=== PATIENT | female | born 1940 | race Caucasian/White ===

== ENCOUNTER → 2020-11-03 09:32 | Outpatient (CLI) | payer MEDICARE, OTHER, SELFPAY ==
[2020-10-24 11:36] VITALS: BMI 26.4
--- NOTE | 2020-11-03 10:00 | RAD_ITS ---
STUDY: AIR-CONTRAST UPPER GI SERIES. REASON FOR EXAM: Female, 80 years old. LOSS OF APPETITE, 10-15 LBS LOSS, HIATAL HERNIA -- 21 FLUORO IMAGES, 14.01mGy, 40 FLUORO SEC FLUOROSCOPY TIME (if supplied): ( 40 seconds ) minutes/seconds. 21 fluoroscopic images. TECHNIQUE: The patient ingested barium. Multiple images of the esophagus, stomach and duodenum were obtained. COMPARISON: None. FINDINGS: There is a moderate-sized hiatal hernia without gastroesophageal reflux. The remainder of the stomach and duodenum is unremarkable. RAD/Upper GI Dual Contrast IMPRESSION: Moderate sized hiatal hernia without evidence of gastroesophageal reflux. Electronically Signed: Matthew Hall, at 15:42 EST , Service support ,
== END ==
PROVIDERS: PCP Physician Assistant; Referring Provider Nurse Practitioner Adult Health; Visit Provider Nurse Practitioner Adult Health
DX: R68.81 Early satiety (principal); R63.4 Abnormal weight loss; K44.9 Diaphragmatic hernia without obstruction or gangrene
CPT/HCPCS: 74246

== ENCOUNTER → 2021-04-19 14:27 | Outpatient (CLI) | payer MEDICARE, OTHER, SELFPAY ==
[2020-12-09 10:10] VITALS: BMI 22.7
--- NOTE | 2021-04-19 14:32 | VDLE_ITS ---
Reason For Study: Edema RIGHT LEFT GSV is normal. GSV is normal. CFV is compressible, spontaneous, phasic, CFV is compressible, spontaneous, phasic, competent and demonstrates normal competent, and demonstrates normal augmentation. augmentation. FV is compressible, spontaneous, phasic, FV is compressible, spontaneous, phasic, competent and demonstrates normal competent and demonstrates normal augmentation. augmentation. POP V is compressible, spontaneous, phasic, POP V is compressible, spontaneous, phasic, competent and demonstrates normal competent and demonstrates normal augmentation. augmentation. T/P Trunk is compressible. T/P Trunk is compressible. PTV is compressible. PTV is compressible. RT PerV is compressible. LT PerV is compressible. Procedure This is a venous duplex using B-mode, color flow and spectral Doppler. Exam performed in department. A preliminary report was called and/or faxed to Jan. VL/Venous Duplex US - Alejandro Extrem Interpretation Summary Deep veins of the lower extremities are bilaterally patent and compressible seg mentally. There is no evidence of deep vein thrombosis on either side. Valvular competence appears in tact within the proximal deep venous systems bilaterally. The great saphenous veins appear bila terally patent and compressible segmentally. Ordering Physician: Felipe Montoya Referring Physician: Javier Park Performed By: Leanne Mayfield RVT and Student
== END ==
PROVIDERS: PCP Physician Assistant; Referring Provider Radiology Radiation Oncology; Visit Provider Radiology Radiation Oncology
DX: R60.0 Localized edema (principal)
CPT/HCPCS: 93970

== ENCOUNTER → 2021-05-16 08:52 | Outpatient (CLI) | payer MEDICARE, OTHER, SELFPAY ==
[2020-12-09 10:10] VITALS: BMI 22.7
[2021-05-16] MEDS: 0.9% NaCl VAD Flush IV (09:14)
[2021-05-16 09:17] VITALS: BP 111/56; PULSE 87; RESP 16; TEMP 36.6; BMI 22.0
[2021-05-16 10:07] VITALS: BP 112/56; PULSE 78; RESP 16; TEMP 36.3; O2SAT 100
[2021-05-16 11:03] VITALS: BP 147/62; PULSE 69; RESP 16; TEMP 36.4
[2021-05-16 12:00] VITALS: BP 143/69; PULSE 70; RESP 16; TEMP 36.3
== END ==
PROVIDERS: PCP Physician Assistant; Referring Provider Internal Medicine Hematology & Oncology; Visit Provider Internal Medicine Hematology & Oncology
DX: D50.0 Iron deficiency anemia secondary to blood loss (chronic) (principal)
CPT/HCPCS: 36430; 86850; 86900; 86901; 86920; 86922; J7040; J7050; P9016; A4216

== ENCOUNTER → 2021-05-22 08:48 | Outpatient (CLI) | payer MEDICARE, OTHER, SELFPAY ==
[2020-12-09 10:10] VITALS: BMI 22.7
[2021-05-16 09:17] VITALS: BMI 22.0
[2021-05-22 09:03] VITALS: BP 128/76; PULSE 89; RESP 16; TEMP 36.8; BMI 21.3
== END | disposition home or self-care (01) ==
PROVIDERS: PCP Family Medicine; Referring Provider Internal Medicine Hematology & Oncology; Visit Provider Internal Medicine Hematology & Oncology
DX: C15.9 Malignant neoplasm of esophagus, unspecified (principal)

== ENCOUNTER 2021-07-13 11:00 | Outpatient (RCR) | payer MEDICARE, OTHER, SELFPAY ==
[2021-07-06 10:22] VITALS: BP 125/65; PULSE 64; TEMP 36.5
--- NOTE | 2021-07-06 14:14 | PCM.WC.HP ---
History of Present Illness Date of Service: 07/06/21 Chief Complaint: Right Buttock Ulcer History of Wound: Ms. Pinzon is a 80-year-old who presents to the wound center due to nonhealing right buttock ulcer. Said to have been noted on the 09 of July. Denies any known precipitating factor. History of esophageal cancer currently in treatment. Her daughter has been helping her care for the ulcer but it has become increasingly difficult. She is unsure of what has been used for the dressing. No significant drainage. Poor appetite, utilizes a feeding tube. No chills, fever or change in bowel habit. [facility] Medical History (Updated 07/06/21 @ 14:[address] Angel Ryan MD) Decubitus ulcer of right buttock, stage 3 Esophageal cancer Essential (primary) hypertension HLD (hyperlipidemia) Hypokalemia Hyponatremia Non-ST elevation myocardial infarction (NSTEMI), type 2 (06/11/16) Physical debility Takotsubo cardiomyopathy transient hypoxia Home Medications lisinopril 40 mg PO DAILY 12/29/15 [History Last Taken Unknown] carvedilol 25 mg tablet 25 mg PO BID 09/10/19 [History Last Taken Unknown] Vitamin b12 1 tab PO .PO 12/09/20 [History Last Taken Unknown] atenolol 25 mg tablet 12.5 mg PO DAILY tab 12/09/20 [History Last Taken Unknown] calcium carbonate 600 mg (1,500 mg)-vitamin D3 500 unit capsule 1 cap PO DAILY cap 12/09/20 [History Last Taken Unknown] cholecalciferol (vitamin D3) 10 mcg (400 unit) capsule 20 mcg PO DAILY cap 12/09/20 [History Last Taken Unknown] famotidine 20 mg tablet 20 mg PO BID tab 12/09/20 [History Last Taken Unknown] fluticasone propionate 50 mcg/actuation nasal spray,suspension 2 spray INTRANASAL DAILY ml 12/09/20 [History Last Taken Unknown] metoclopramide HCl 5 mg tablet 5 mg PO DAILY tab 12/09/20 [History Last Taken Unknown] mirtazapine 15 mg tablet 7.5 mg PO QHS tab 12/09/20 [History Last Taken Unknown] omeprazole 20 mg capsule,delayed release 20 mg PO DAILY cap 12/09/20 [History Last Taken Unknown] atorvastatin 20 mg tablet 20 mg PO DAILY #90 tab 02/27/21 [Rx Last Taken Unknown] Allergy/AdvReac Type Severity Reaction Status Date / Time acetaminophen [From [facility]] Allergy Unknown Verified 05/22/21 09:03 hydrocodone [From [facility]] Allergy Unknown Verified 05/22/21 09:03 Penicillins Allergy Rash Verified 05/22/21 09:03 Sulfa (Sulfonamide AdvReac Upset Verified 05/22/21 09:03 Antibiotics) Stomach Family History Brother CAD (coronary artery disease) Father CVA (cerebral vascular accident) Mother CVA (cerebral vascular accident) Surgical History H/O: hysterectomy History of left heart catheterization (06/11/16) Hx of appendectomy Social History (Updated 12/09/20 @ 12:22 by Juan Abbott DIRECTOR CORPORATE COMMUNICATIONS, DIRECTOR CORPORATE COMMUNICATIONS-C) Smoking Status: Never smoker alcohol intake: never substance use type: does not use ROS Constitutional Constitutional: Reports fatigue, lethargy and poor appetite; Denies fever(s) or weight gain Eyes Eyes: Denies blindness, change in eye color, decreased night vision, diplopia or discharge from eye(s) ENT HEENT: Denies ear discharge, ear pain, epistaxis, facial pain or foreign body in nose Cardiovascular Cardiovascular: Denies bluish discoloration of hand/feet, chest pain, chest pain with activity, claudication, clubbing or cold extremities Respiratory/Chest Respiratory/Chest: Denies difficulty clearing secretions, dusky skin, excessive phlegm production, hemoptysis, hoarseness or pain with cough Gastrointestinal Gastrointestinal: Denies coffee ground emesis, diarrhea, dry heaves, dyspepsia or dysphagia Genitourinary Genitourinary: Denies abdominal discomfort, burning urination, genital lesions or genital pain Musculoskeletal Musculoskeletal: Denies joint swelling, loss of height, muscle cramps or numbness Integumentary Integumentary: Reports skin ulcer; Denies bleeding lesions, change in pigmentation, erythema or skin swelling Neurologic Neurologic: Denies burning sensations, confusion, dizziness, focal weakness, frequent falls or headache(s) Psychiatric Psychiatric: Denies hallucinations, homicidal ideation, irritability or memory loss Endocrine Endocrinology: Denies deepening of the voice, heat intolerance, increase in ring/shoe/hat size, palpitations, polydipsia or polyphagia Vital Signs Vital Signs Vital Signs: 07/06/21 10:22 Temperature 97.7 F L Temperature Source Temporal Pulse Rate 64 Blood Pressure 125/65 H Blood Pressure Mean 85 Blood Pressure Source Monitor Blood Pressure Position Semi-Fowlers Blood Pressure Location Right Arm Physical Exam Const alert, oriented x3 and no apparent distress General Appearance: cooperative and comfortable HEENT normocephalic and head/scalp atraumatic Neck full ROM Resp normal respiratory effort Effort and Inspection: able to speak in complete sentences Cardio regular rate, regular rhythm, S1 normal heart sound and S2 normal heart sound GI Palpation: soft; Negative for tender Skin Wounds: wounds noted Neuro oriented x3, CN's II-XII intact bilaterally, moves all extremities and no focal motor deficits Psych mental status grossly normal Appearance: grossly normal Attitude: calm Debridement Note Debridement Note Wound debrided: Right buttock Type of Debridement: Excisional debridement Anesthesia Used: 4% Lidocaine Solution Depth: Down to and including healthy tissue Percentage of wound debrided: 100 Instrument Used: 5mm curette Tissue Removed: Slough and devitalized tissue Severity: Fat Layer Exposed Amount of bleeding with debridement: Mild Bleeding Controlled with: Pressure Patient tolerated procedure: Patient tolerated procedure well Post-Debridement Measurements and Additional Note: Post-Debridement Measurements/Treatment - Nurse 1 - General Ulcer Assessment Start: 07/06/21 10:21 Freq: Status: Active Protocol: [email or web address] Activity Type Activity Date Activity User E-Sign Co-Sign Detail Recorded Client Recorded Date Recorded By Document 07/06/21 10:22 [id number] 07/06/21 10:26 ML 07/06/21 10:22 - Today's Visit Information Type of service Initial Visit Arrival Mode Ambulatory Patient Identification Verified (Name & Yes ) Vital Signs Temperature (97.8 F-99.1 F) 97.7 F L Temperature Source Temporal Pulse Rate (60-100) 64 Pulse Location Monitor Blood Pressure (90/60-120/80) 125/65 H Blood Pressure Mean 85 Source Monitor Position Semi-Fowlers Blood Pressure Location Right Arm History Since Last Visit- (Skip if this is Patient's initial visit) Have you changed medications since your No last visit? Any new allergies or adverse reactions No Had a fall/change in ADL's that may No increase risk of falls Signs or symptoms of abuse and/or No neglect since last visit Have you been in the hospital since your No last visit? Has dressing in place as prescribed No Has compression in place as prescribed N/A Has offloadiing in place as prescribed N/A Experienced any changes in pain level or No management Left Footwear Regular Shoe Right Footwear Regular Shoe Pain Scale: 0-10 Numeric Is Patient Pain Free? Yes - Nurse 1 - General Ulcer Measurement Start: 07/06/21 10:21 Freq: Status: Active Protocol: Activity Type Activity Date Activity User E-Sign Co-Sign Detail Recorded Client Recorded Date Recorded By Document 07/06/21 10:22 [id number] 07/06/21 10:26 07/06/21 10:22 Wound Center Nurse 1 #1 Right Buttock -Current Size (cm) - Length 1 -Current Size (cm) - Width 1 -Current Size (cm) - Depth 0.1 -Total Square Cm 1 -Exudate Amt None Present -Wound Margin Distinct, Outline Attached -Granulation Amt Small (1-33%) -Granulation Quality Pale -Necrosis Amt None Present (0 %) -Texture (Nallely-wound Skin Appearance) Assessed, Scarring -Moisture (Nallely-wound Skin Appearance) No Abnormality, Assessed -Color (Nallely-wound Skin Appearance) No Abnormality, Assessed -Temperature (Nallely-wound Skin No Abnormality Appearance) (Pt Warm) -Tenderness on Palpation (Nallely-wound No Skin Appearance) -Ulcer Cleansing Rinsed/ Irrigated with Saline -Foul Odor after Cleansing No -Anesthetic Used 5% Lidocaine Gel - Nurse 2 - General Ulcer CM Notes Start: 07/06/21 10:21 Freq: Status: Active Protocol: Activity Type Activity Date Activity User E-Sign Co-Sign Detail Recorded Client Recorded Date Recorded By Document 07/06/21 10:52 MS [id number] 07/06/21 10:56 MS 07/06/21 10:52 Wound Center Nurse 2 -Time 10:52 -Correct Patient Yes -Correct Side, Site, Position Yes -Correct Procedure Yes -Procedure Performed Yes -Type of Procedure Debridement -Clinical Debridement Subcutaneous -Tissue Removed Subcutaneous -Post Debridement (cm) - Length 0.6 -Post Debridement (cm) - Width 1.3 -Post Debridement (cm) - Depth 0.1 -Total Square (Post) (cm) 0.78 -Area of Debridement (cm) - Length 0.6 -Area of Debridement (cm) - Width 1.3 -Total Square (Area) (cm) 0.78 -Tunneling No -Undermining/Tunneling No -Circular Undermining No -Wound/Ulcer Outcome Not Healed -Ulcer Cleansing Rinsed/ Irrigated with Saline -Foul Odor after Cleansing No -Bioengineered Tissue No -Bleeding Controlled with Pressure -Offloading No -Treatment Response Procedure Tolerated Well -Debridement - Subq, 1st 20sq cm Yes WC - Nurse 3 - General Ulcer D/C NN Start: 07/06/21 10:21 Freq: Status: Active Protocol: Activity Type Activity Date Activity User E-Sign Co-Sign Detail Recorded Client Recorded Date Recorded By Document 07/06/21 11:08 ML [id number] 07/06/21 11:09 ML 07/06/21 11:08 Wound Care Nurse 3 -Ulcer Cleansing Rinsed/ Irrigated with Saline -Foul Odor after Cleansing No -Other Dressing xeroform,foam dressing WC - Visit Discharge Discharge Condition Stable Ambulatory Status Ambulatory Medication Reconcilliation completed & No provided to patient/care provider Clinical Summary of Care Provided Yes Charges/Coding Visit Charges Office Visits / Consults: [id number] OV L3 New Procedures Integumentary 111xxx-113xx: [id number] Eli subq tissue 20 sq cm/< Assessment/Plan Assessment/Plan (1) Decubitus ulcer of right buttock, stage 3: CODE(S): L89.313 - Pressure ulcer of right buttock, stage 3 (2) Esophageal cancer: CODE(S): C15.9 - Malignant neoplasm of esophagus, unspecified (3) Physical debility: CODE(S): R53.81 - Other malaise PLAN: Debridement done as documented above, procedure was well-tolerated. Xeroform daily with foam dressing over top. Offloading discussed/recommended. Adequate protein intake, currently has a G-tube. Vitamin C, D and zinc to aid wound healing. Her questions were answered and she was advised to call with any further questions or concerns. Patient is unable to care for herself due to her debility and chronic medical conditions. Daughter is also not readily available to help care for her. She will immensely benefit from home health, order sent. Follow-up in 1 week. This note was generated with Dragon dictation software. It may contain incorrect words, spelling, and punctuation that were not noted in checking the note before signing.
[2021-07-13 11:00] VITALS: BP 138/60; PULSE 85; TEMP 29.4
--- NOTE | 2021-07-13 13:51 | PN.PCM_ITS ---
History of Present Illness Date of Service: 07/13/21 Chief Complaint: Right Buttock Ulcer History of Wound: Ms. Pinzon is a 80-year-old who presents to the wound center due to nonhealing right buttock ulcer. Said to have been noted on the 09 of July. Denies any known precipitating factor. History of esophageal cancer currently in treatment. Her daughter has been helping her care for the ulcer but it has become increasingly difficult. She is unsure of what has been used for the dressing. No significant drainage. Poor appetite, utilizes a feeding tube. No chills, fever or change in bowel habit. Subjective Subjective Healed. No new concerns at this time. Objective Data Objective Data Vital Signs: Vital Signs Temp Pulse BP 85 F L 85 138/60 H 07/13/21 11:00 07/13/21 11:00 07/13/21 11:00 Charges/Coding Visit Charges Office Visits / Consults: 22653 OV L3 Est Physical Exam Const alert, oriented x3 and no apparent distress General Appearance: cooperative and comfortable HEENT normocephalic and head/scalp atraumatic Neck full ROM Resp normal respiratory effort Effort and Inspection: able to speak in complete sentences GI Palpation: soft; Negative for tender Neuro oriented x3, CN's II-XII intact bilaterally, moves all extremities and no focal motor deficits Psych mental status grossly normal Appearance: grossly normal Attitude: calm Debridement Note Debridement Note Post-Debridement Measurements and Additional Note: Post-Debridement Measurements/Treatment - Nurse 1 - General Ulcer Assessment Start: 07/06/21 10:21 Freq: Status: Active Protocol: [email or web address] Activity Type Activity Date Activity User E-Sign Co-Sign Detail Recorded Client Recorded Date Recorded By Document 07/06/21 10:22 ML [id number] 07/06/21 10:26 ML Document 07/13/21 11:00 AK [id number] 07/13/21 11:02 AK 07/06/21 07/13/21 10:22 11:00 - Today's Visit Information Type of service Initial Visit Follow-up Visit (Physician/SENIOR MASTER SCHEDULER ) Arrival Mode Ambulatory Ambulatory Patient Identification Verified (Name & Yes Yes ) Patient Requires Transmission-Based No Precautions Safety Precautions NA Vital Signs Temperature (97.8 F-99.1 F) 97.7 F L 85 F L Temperature Source Temporal Temporal Pulse Rate (60-100) 64 85 Pulse Location Monitor Monitor Blood Pressure (90/60-120/80) 125/65 H 138/60 H Blood Pressure Mean (mm Hg) 85 86 Source Monitor Monitor Position Semi-Fowlers Blood Pressure Location Right Arm History Since Last Visit- (Skip if this is Patient's initial visit) Have you changed medications since your No No last visit? Any new allergies or adverse reactions No No Had a fall/change in ADL's that may No No increase risk of falls Signs or symptoms of abuse and/or No No neglect since last visit Have you been in the hospital since your No No last visit? Has dressing in place as prescribed No Yes Has compression in place as prescribed N/A N/A Has offloadiing in place as prescribed N/A Yes Experienced any changes in pain level or No No management Left Footwear Regular Shoe Regular Shoe Right Footwear Regular Shoe Regular Shoe Pain Scale: 0-10 Numeric Is Patient Pain Free? Yes WC - Nurse 1 - General Ulcer Measurement Start: 07/06/21 10:21 Freq: Status: Active Protocol: Activity Type Activity Date Activity User E-Sign Co-Sign Detail Recorded Client Recorded Date Recorded By Document 07/06/21 10:22 ML [id number] 07/06/21 10:26 ML Document 07/13/21 11:00 AK [id number] 07/13/21 11:02 AK 07/06/21 07/13/21 10:22 11:00 Wound Center Nurse 1 #1 Right Buttock -Current Size (cm) - Length 1 0.1 -Current Size (cm) - Width 1 0.1 -Current Size (cm) - Depth 0.1 0.1 -Total Square Cm 1 0.01 -Photo Taken No -Tunneling No -Undermining/Tunneling No -Circular Undermining No -Change in Wound Grade/Stage No -Exudate Amt None Present None Present -Wound Margin Distinct, Distinct, Outline Outline Attached Attached -Granulation Amt Small (1-33%) None Present (0 %) -Granulation Quality Pale N/A -Slough/Fibrin No -Necrosis Amt None Present (0 %) -Structure Exposed N/A -Texture (Nallely-wound Skin Appearance) Assessed, No Abnormality, Scarring Assessed -Moisture (Nallely-wound Skin Appearance) No Abnormality, No Abnormality, Assessed Assessed -Color (Nallely-wound Skin Appearance) No Abnormality, No Abnormality, Assessed Assessed -Temperature (Nallely-wound Skin No Abnormality No Abnormality Appearance) (Pt Warm) (Pt Warm) -Tenderness on Palpation (Nallely-wound No No Skin Appearance) -Ulcer Cleansing Rinsed/ Rinsed/ Irrigated with Irrigated with Saline Saline -Foul Odor after Cleansing No No -Anesthetic Used 5% Lidocaine 5% Lidocaine Gel Gel WC - Nurse 2 - General Ulcer CM Notes Start: 07/06/21 10:21 Freq: Status: Active Protocol: Activity Type Activity Date Activity User E-Sign Co-Sign Detail Recorded Client Recorded Date Recorded By Document 07/06/21 10:52 MT [id number] 07/06/21 10:56 MT Document 07/13/21 11:07 MW [id number] 07/13/21 11:09 MW 07/06/21 07/13/21 10:52 11:07 Wound Center Nurse 2 -Time 10:52 11:07 -Correct Patient Yes Yes -Correct Side, Site, Position Yes Yes -Correct Procedure Yes Yes -Procedure Performed Yes No -Type of Procedure Debridement -Clinical Debridement Subcutaneous -Tissue Removed Subcutaneous -Post Debridement (cm) - Length 0.6 0 -Post Debridement (cm) - Width 1.3 0 -Post Debridement (cm) - Depth 0.1 0 -Total Square (Post) (cm) 0.78 0 -Area of Debridement (cm) - Length 0.6 -Area of Debridement (cm) - Width 1.3 -Total Square (Area) (cm) 0.78 -Tunneling No No -Undermining/Tunneling No No -Circular Undermining No No -Wound/Ulcer Outcome Not Healed Healed- Epithelialized -Ulcer Cleansing Rinsed/ Irrigated with Saline -Foul Odor after Cleansing No -Bioengineered Tissue No -Bleeding Controlled with Pressure -Offloading No -Treatment Response Procedure Tolerated Well -Debridement - Subq, 1st 20sq cm Yes WC - Nurse 3 - General Ulcer D/C NN Start: 07/06/21 10:21 Freq: Status: Active Protocol: Activity Type Activity Date Activity User E-Sign Co-Sign Detail Recorded Client Recorded Date Recorded By Document 07/06/21 11:08 ML [id number] 07/06/21 11:09 ML Document 07/13/21 11:13 BMF [id number] 07/13/21 11:14 BMF 07/06/21 07/13/21 11:08 11:13 Wound Care Nurse 3 -Ulcer Cleansing Rinsed/ Irrigated with Saline -Foul Odor after Cleansing No -Other Dressing xeroform,foam dressing Treatment Response Procedure Tolerated Well Pain Scale: 0-10 Numeric Is Patient Pain Free? Yes WC - Visit Discharge Discharge Condition Stable Stable Ambulatory Status Ambulatory Ambulatory Transportation Private Auto Accompanied by daughter Medication Reconcilliation completed & No provided to patient/care provider Clinical Summary of Care Provided Yes Assessment/Plan Assessment/Plan (1) Decubitus ulcer of right buttock, stage 3: CODE(S): L89.313 - Pressure ulcer of right buttock, stage 3 (2) Esophageal cancer: CODE(S): C15.9 - Malignant neoplasm of esophagus, unspecified (3) Physical debility: CODE(S): R53.81 - Other malaise PLAN: Healed. No new concerns at this time. Zinc oxide daily to twice daily and cover with barrier dressing. Do this for 1 to 2 weeks. Offloading discussed/recommended. Adequate protein intake, currently has a G-tube. Vitamin C, D and zinc to aid wound healing. Her questions were answered and she was advised to call with any further questions or concerns. Discharge from the wound clinic. This note was generated with [employer] dictation software. It may contain incorrect words, spelling, and punctuation that were not noted in checking the note before signing.
== END 2021-07-27 23:59 ==
LOC: WC 11:00
PROVIDERS: PCP Family Medicine; Visit Provider Internal Medicine
DX: L89.313 Pressure ulcer of right buttock, stage 3 (principal); C15.9 Malignant neoplasm of esophagus, unspecified; I11.9 Hypertensive heart disease without heart failure; E78.5 Hyperlipidemia, unspecified; Z93.1 Gastrostomy status; Z79.899 Other long term (current) drug therapy; I25.2 Old myocardial infarction
CPT/HCPCS: 11042; 99213; G0463

== ENCOUNTER → 2021-07-28 07:57 | Outpatient (CLI) | payer MEDICARE, OTHER, SELFPAY ==
--- NOTE | 2021-07-28 08:04 | RAD_ITS ---
STUDY: X-RAY - ESOPHAGUS (BARIUM SWALLOW) WITH FLUOROSCOPY REASON FOR EXAM: Female, 80 years old. DYSPHAGIA,ESOPH CA TECHNIQUE: 30 view(s) of the esophagus were obtained following swallowing of barium. FLUOROSCOPY TIME (if supplied): (75 seconds) minutes/seconds COMPARISON: None. FINDINGS: There is no demonstrated esophageal foreign body. There is circumferential narrowing of the distal esophagus. Mild irregularity of the wall of the distal esophagus. The patient ingested a 12 mm tablet of barium. The tablet is trapped in the distal esophagus. Surgical clips are seen in the fundal aspect of the stomach. There is atherosclerotic calcification of the aortic arch with tortuosity of the descending aorta. There are scattered small pulmonary calcifications consistent with old granulomatous disease. There are diffuse degenerative changes of the visualized thoracic spine. RAD/Esophagus Dual Contrast IMPRESSION: Circumferential wall narrowing of the distal esophagus with deformity of the fundal portion of the stomach with surgical clips in that region. The ingested 12 mm tablet of barium is trapped in the distal esophagus. Electronically Signed: Matthew Hall MD at 14:42 EDT , Service support ,
== END ==
PROVIDERS: PCP Family Medicine; Visit Provider Internal Medicine Gastroenterology
DX: C15.9 Malignant neoplasm of esophagus, unspecified (principal); R13.10 Dysphagia, unspecified
CPT/HCPCS: 74220; 74221

== ENCOUNTER → 2021-09-04 13:50 | Outpatient (CLI) | payer MEDICARE, OTHER, SELFPAY ==
--- NOTE | 2021-09-04 14:48 | ST.MBS ---
Modified Barium Swallow - Patient Information Study Date: 09/04/21 Study Time: 13:30 Direct Billable Minutes: 120 Total Minutes procedure & reportin Diagnosis: Dysphagia R13.10 Referring Physician: [place] Reason for Referral: Pt. was referred for an objective Videofluoroscopy study of the swallow to rule out aspiration due to pt. having difficulty swallow hard food textures and complaining of food sticking in her throat. Medical History: Pt. reports medical history of esophageal cancer and treatment of radiation and chemotherapy. Pt. reports no resipiratory or neurological medical diagnoses. Current Diet Ordered: soft with thin liquids per pt. report Dentition: Missing Teeth - Penetration-Aspiration Scale Penetration-Aspiration Scale: OBJECTIVE ASSESSMENT OF SWALLOW FUNCTION (QUANTITATIVE ? PER TRIAL): PENETRATION / ASPIRATION SCALE (MARLOW): 1 = does not enter airway 2 = enters airway/above vocal folds/ejected 3 = enters airway/above vocal folds/not ejected 4 = enters airway/contacts vocal folds/ejected 5 = enters airway/contacts vocal folds/not ejected 6 = enters airway/below vocal folds/ejected 7 = enters airway/below vocal folds/not ejected despite effort 8 = enters airway/below vocal folds/no effort - Penetration-Aspiration Scale Score Thin Liquid via teaspoon Result: 1= does not enter airway Thin Liquid via teaspoon Trial 2 Result: 1= does not enter airway Thin Liquid via small single sip from cup Result: 1= does not enter airway Thin Liquid via sequential sips from cup Result: 2= enter airway/above vocal folds/ejected Thin Liquid via sequential sips from straw Result: 2= enter airway/above vocal folds/ejected [employer] Thick Liquid via small single sip from cup Result: 1= does not enter airway Honey Thick Liquid via small single sip from cup Result: 1= does not enter airway Pudding via teaspoon Result: 1= does not enter airway - Pt. presented with gagging with bolus and stated tsp amount was too large Pudding via teaspoon Trial 2 Result: 1= does not enter airway - esophageal scan Cookie via teaspoon Result: 1= does not enter airway Thin Liquid via small single sip from cup Effortful swallow Result: 2= enter airway/above vocal folds/ejected Thin Liquid via small single sip from cup Trial 2 Result: 1= does not enter airway Thin Liquid via small single sip from cup Chin tuck Result: 5= enters airways/contacts vocal folds/not ejected - Oral Phase Labial Seal: No Labial Escape Tongue Control During Bolus Hold: Cohesive bolus between tongue to palatal seal Bolus Preparation/Mastication: Disorganized chewing/mashing with solid pieces of bolus unchewed Bolus Transport/Lingual Motion: Slowed tongue motion Oral Residue: Residue collection on oral structures - Pharyngeal Phase Initiation of Pharyngeal Swallow: Bolus head in valleculae - at end of study, bolus head at posterior tongue at beginning of study Soft Palate Elevation: No bolus between soft palate and pharyngeal wall Laryngeal Elevation: Partial superior movement thyroid cart/partial apprx aryt-epig petiole Anterior Hyoid Excursion: Partial anterior movement Epiglottic Movement: Complete inversion Laryngeal Vestibule Closure at Height of Swallow: Incomplete; narrow column of air/contrast in laryngeal vestibule - with sequential sips, complete with single sips/bites Pharyngeal Stripping Wave: Present - complete Pharyngoesophageal Segment Opening: Parital distension and partial duration; parital obstruction of flow Tongue Base Retraction: Narrow column of contrast between tongue base & post. pharyngeal wall Pharyngeal Residue: Collection of residue within or on pharyngeal structures - Esophageal Phase Esophageal Clearance: Esophageal retention - cleared with delay - Treatment Strategies Effects of treatment strategies attemped:: Pt. independently implemented re-swallow after each po trial with limited success to clear oral residue. Pt. was prompted by DRAWER [employer]TER to trial effortful swallow and chin tuck with thin liquids with initial swallow resulting in increased penetration. - Diagnosis/Impression Diagnosis: Moderate oropharyngeal dysphagia R13.12 Impression: Pt. presents with oral phase dysphagia marked by decreased masticaiton of solid textures and decreased anterior to posterior transfer of the bolus resulting in oral residues and un-masticated pieces of solid textures. Pt. presents with pharyngeal phase dysphagia characterized by decreased tongue base retraction, decreased laryngeal elevation and decreased anterior hyoid excursion resulting in pharyngeal residue along the tongue base and the valleculae and trace residue along the pharyngeal wall and pyriform sinuses. Pt. independently implemented re-swallows with limited success to clear pharyngeal residues, but it did minimize oral residues. Pt. presented with consistent throat clear throughout the study, but no aspiration observed. - Recommendations Diet: Mechanical Soft Textures - minced and moist IDDSI level 5 and thin liquids IDDSI level 0, Thin Liquids Comment: 1 sip and bite at a time Compensatory Strategies: Small Bites, Small Sips, No Straws, Slow Rate, Multiple Swallows, Alternate bites/solids and sips/liquids, Sitting upright, Remain sitting upright for 30 minutes after PO intake Supervision: Distant Supervision Recommend Repeat Modified Barium Swallow: No Need for Skilled Speech Therapy Services: Yes - Continue with Home Health ST Education Completed: 1. Described result of evaluation., 2. Pt understands evaluation & agrees with goals and treatment plan. - Status Active ST Patient: Not Active - Contact Information [facility] Speech Therapy:: [facility] [address] [place], [place] Viki Fisher M.A., CCC-DRAWER FITTER [email or web address] 09/04/21 15:29
== END ==
LOC: RAD 13:50
PROVIDERS: PCP Family Medicine; Visit Provider Physician Assistant
DX: R13.13 Dysphagia, pharyngeal phase (principal)
CPT/HCPCS: 74230; 92611

== ENCOUNTER 2021-11-28 09:25 | Outpatient (CLI) | payer MEDICARE, OTHER, SELFPAY ==
--- NOTE | 2021-11-28 09:35 | RAD_ITS ---
STUDY: X-RAY - ESOPHAGUS (BARIUM SWALLOW) WITH FLUOROSCOPY REASON FOR EXAM: Female, 81 years old. ESOPHAGEAL CANCER/STENT/DYSPHAGIA TECHNIQUE: 31 view(s) of the esophagus were obtained following swallowing of barium. FLUOROSCOPY TIME (if supplied): (1 minute and 30 seconds) minutes/seconds COMPARISON: Comparison is made with prior examination dated 07/28/2021. FINDINGS: An esophageal stent is seen extending from the distal esophagus into the fundal portion of the stomach just distal to the gastroesophageal junction. There is evidence of circumferential narrowing of the midportion of the esophagus just proximal to the origin of the stent. The patient ingested a 12 mm tablet of barium. The tablet this trapped in the mid esophagus. There is evidence of a moderate degree of gastroesophageal reflux. There is atherosclerotic calcification of the aortic arch with tortuosity of the descending aorta. Normal visualized pulmonary parenchyma. There are diffuse degenerative changes of the visualized thoracic spine. RAD/Esophagus Dual Contrast IMPRESSION: Status post esophageal stent extending from the distal esophagus into the fundal portion of the stomach. Circumferential narrowing of the mid esophagus just proximal to the origin of the stent. There is trapping of the 12 mm tablet of barium at that site. Gastroesophageal reflux. Electronically Signed: Matthew Hall MD at 14:56 EST ,
== END 2021-11-28 23:59 | disposition short-term general hospital (02) ==
LOC: RAD 09:29
PROVIDERS: PCP Family Medicine; Referring Provider Internal Medicine Gastroenterology; Visit Provider Internal Medicine Gastroenterology
DX: R13.10 Dysphagia, unspecified (principal); C15.9 Malignant neoplasm of esophagus, unspecified; Z96.89 Presence of other specified functional implants
CPT/HCPCS: 74221

== ENCOUNTER 2021-12-02 18:37 | Emergency (ER) | payer MEDICARE, OTHER, SELFPAY ==
[2021-12-02 18:38] VITALS: BP 130/78; PULSE 75; RESP 18; TEMP 36.4; O2SAT 97; BMI 20.5
--- NOTE | 2021-12-02 18:57 | CT_ITS ---
EXAM: CT CERVICAL SPINE WITHOUT INTRAVENOUS CONTRAST CLINICAL INDICATION: neck pain TECHNIQUE: Helically acquired images were obtained of the cervical spine without intravenous contrast. 2D reformatted images were reviewed. This CT exam was performed using one or more of the following dose reduction techniques: automated exposure control, adjustment of the mA and/or kV according to patient size, and/or use of iterative reconstruction technique. This report was created using [employer] report generation technology. COMPARISON: None. FINDINGS: VERTEBRAE: Anterior spondylosis at multiple cervical levels. Multilevel facet arthropathy throughout cervical spine. Degenerative anterolisthesis of C3-C4 and C4-C5. No fracture. No discrete lytic or blastic abnormality. Normal craniocervical junction and cervicothoracic junction. DISCS/SPINAL CANAL/NEURAL FORAMINA: Disc space narrowing most pronounced at C5-C6. SOFT TISSUES: Unremarkable. No prevertebral soft tissue swelling. VASCULATURE: Atherosclerosis of the bilateral carotid arteries. LYMPH NODES: Unremarkable. No cervical adenopathy. ESOPHAGUS: Fluid-filled thoracic esophagus. LUNG APICES: Unremarkable as visualized. Clear. CT/Spine Cervical without Contras IMPRESSION: 1. No acute findings in the cervical spine. 2. Multilevel degenerative changes. 3. Fluid-filled thoracic esophagus. Electronically Signed: Adam Prado MD ([place]) at 21:03 EST Reading Location ID and State: [facility] / [place] , Service support ,
--- NOTE | 2021-12-02 19:04 | ED.VIS.FALL ---
HPI <LEA Millan - Last Filed: 12/02/21 21:54> HPI - Fall History of Present Illness Chief Complaint: Fall Narrative Narrative: 81-year-old female presents after a fall. She was carrying something upstairs when she lost her balance and fell backwards down 5 steps onto the landing. She hit her head and back on the wall and landed on her butt. No LOC. No aspirin or blood thinners. She scooted herself to the bottom of the steps and her family arrived 15 minutes later and called EMS. She was not able to ambulate. She reports pain in her right lower back but has no other injuries. Denies headache, nausea, vomiting, neck pain, chest pain, dyspnea, abdominal pain. [facility] <LEA Millan - Last Filed: 12/02/21 21:54> [facility] Medical History (Updated 07/06/21 @ 14:[address] Angel Ryan MD) Decubitus ulcer of right buttock, stage 3 Esophageal cancer Essential (primary) hypertension HLD (hyperlipidemia) Hypokalemia Hyponatremia Non-ST elevation myocardial infarction (NSTEMI), type 2 (06/11/16) Physical debility Takotsubo cardiomyopathy transient hypoxia Home Medications carvedilol 25 mg tablet 25 mg PO DAILY 09/10/19 [History Last Taken Unknown] calcium carbonate 600 mg-vitamin D3 12.5 mcg (500 unit) capsule 1 cap PO DAILY cap 12/09/20 [History Last Taken Unknown] cholecalciferol (vitamin D3) 10 mcg (400 unit) capsule 20 mcg PO DAILY cap 12/09/20 [History Last Taken Unknown] famotidine 20 mg tablet 20 mg PO BID tab 12/09/20 [History Last Taken Unknown] metoclopramide HCl 5 mg tablet 5 mg PO DAILY tab 12/09/20 [History Last Taken Unknown] atorvastatin 20 mg tablet 20 mg PO DAILY #90 tab 02/27/21 [Rx Last Taken Unknown] citalopram 20 mg PO DAILY 12/02/21 [History Last Taken Unknown] Allergy/AdvReac Type Severity Reaction Status Date / Time hydrocodone [From [place]] Allergy Unknown Verified 12/02/21 18:42 Penicillins Allergy Rash Verified 12/02/21 18:42 Sulfa (Sulfonamide AdvReac Upset Verified 12/02/21 18:42 Antibiotics) Stomach Family History Brother CAD (coronary artery disease) Father CVA (cerebral vascular accident) Mother CVA (cerebral vascular accident) Surgical History H/O: hysterectomy History of left heart catheterization (06/11/16) Hx of appendectomy Social History (Updated 12/09/20 @ 12:22 by Juan Abbott [facility], [facility]) Smoking Status: Never smoker alcohol intake: never substance use type: does not use ROS <LEA Millan - Last Filed: 12/02/21 21:54> ROS ED ROS Narrative Constitutional: Negative for fever, chills, malaise. Eyes: Negative for visual change. ENT: Negative for sore throat, ear pain, rhinorrhea. CVS: Negative for palpitations, chest pain, syncope. Respiratory: Negative for shortness of breath, cough, orthopnea. GI: Negative for abdominal pain, nausea, vomiting, diarrhea, constipation. : Negative for dysuria, hematuria or frequency. Neuro: Negative for headache, motor/sensory dysfunction. Skin: Negative for rash, abscess, or wound. Heme: Negative for easy bruising, bleeding, lymphadenopathy. EXAM <LEA Millan - Last Filed: 12/02/21 21:54> Physical Exam Narrative Exam Narrative: CONST: Patient sitting in no acute distress. EYES: Normal inspection. Head: Head normocephalic atraumatic, no raccoon eyes or groves sign, no hemotympanum, no nasal septal hematoma, no CSF otorrhea or rhinorrhea. ENT: No dental injury, no malocclusion. NECK: Normal inspection. No midline spinal tenderness, no step off or crepitus. RESP: No respiratory distress, CTAB. Chest nontender. CVS: Regular rate and rhythm, no murmur, no gallop. ABD: Soft and nontender, no guarding or rebound, nondistended. PEG tube intact. Back: Normal inspection, no midline spinal tenderness, no step-off or crepitus. Tender to palpation over right posterior lower ribs. SKIN: Color normal, no rash, warm, dry, intact. EXTREMITIES: Normal appearance, full range of motion of upper and lower extremities, nontender, normal strength and sensation, 2+ radial and DP pulses. NEURO: Oriented x4. PSYCH: Normal affect. Const Vital Signs: 12/02/21 18:38 12/02/21 18:49 Temperature 97.6 F L Temperature Source Temporal Pulse Rate 75 Respiratory Rate 18 Respiratory Effort Normal Blood Pressure 130/78 H Blood Pressure Mean 95 Pulse Ox 97 Oxygen Delivery Method Room Air Room Air <Dr. Adama Tapia DO - Last Filed: 12/02/21 22:06> Physical Exam Const Vital Signs: 12/02/21 18:38 12/02/21 18:49 Temperature 97.6 F L Temperature Source Temporal Pulse Rate 75 Respiratory Rate 18 Respiratory Effort Normal Blood Pressure 130/78 H Blood Pressure Mean 95 Pulse Ox 97 Oxygen Delivery Method Room Air Room Air MDM <LEA Millan - Last Filed: 12/02/21 21:54> [facility] MDM Narrative Medical decision making narrative: Patient had a mechanical fall with closed head injury without LOC. She complains of right low back pain. She appears well and nontoxic. Vital signs are within normal limits. She has no evidence of head or neck trauma on exam and no midline spinal tenderness throughout. He does have some tenderness over the right flank and posterior ribs without deformity or crepitus. Normal heart and lung sounds. Abdomen is soft and nontender. Pelvis is stable. She is moving all extremities with strong and equal distal pulses. CT brain and C-spine are negative for acute findings but CT chest/abdomen/pelvis reveals a right superior pubic rami fracture with associated hematoma. Due to acute trauma patient will be transferred to [facility]. Case was discussed and accepted by Dr. Batres. Diagnoses 1. Mechanical fall 2. Closed head injury without loss of consciousness 3. Right pubic rami fracture with hematoma Lab Data Labs: Laboratory Results - last 24 hr 12/02/21 12/02/21 19:28 19:28 WBC 11.9 H RBC 2.95 L Hgb 10.3 L Hct 30.9 L MCV 104.7 H MCH 34.9 H MCHC 33.3 RDW Std Deviation 64.7 H RDW Coeff of Vin 17.1 H Plt Count 228 MPV 9.6 Immature Gran % (Auto) 3.400 H Neut % (Auto) 87.1 H Lymph % (Auto) 1.3 L [place] % (Auto) 7.9 Eos % (Auto) 0.1 Baso % (Auto) 0.2 Absolute Neuts (auto) 10.4 H Absolute Lymphs (auto) 0.16 L Nucleated RBC % 0 Differential Comment Sodium 122 L Potassium 5.3 H Chloride 88 L Carbon Dioxide 31.0 Anion Gap 3 L BUN 26 H Creatinine 0.63 Estim Creat Clear Calc 32.77 Est GFR (MDRD) Af Amer 117 Est GFR (MDRD) Non-Af 97 BUN/Creatinine Ratio 41.3 H Glucose 108 H Calcium 8.5 Radiography Diagnostic Testing: Clinical Impression(s) from Imaging Studies Cervical Spine CT 12/02/21 18:57 IMPRESSION: 1. No acute findings in the cervical spine. 2. Multilevel degenerative changes. 3. Fluid-filled thoracic esophagus. Electronically Signed: Adam Prado MD ([place]) at 21:03 EST , Brain CT 12/02/21 20:45 IMPRESSION: No acute intracranial hemorrhage or mass effect. Electronically Signed: Adam Prado MD ([place]) at 21:01 EST , Chest/Abdomen/Pelvis CT 12/02/21 20:56 IMPRESSION: 1. Small bilateral pleural effusions. 2. Fluid-filled esophagus with esophageal stent. There is narrowing above the esophageal stent suggesting stricture (benign and malignant causes possible). 3. Right parasymphyseal superior ramus fracture with intermediate density fluid collection posterior to the superior ramus measuring 3.1 x 4.4 cm, probable hematoma. No extravasation/active bleeding. Electronically Signed: Adam Prado MD ([place]) at 21:21 EST , <Dr. Adama Tapia, DO - Last Filed: 12/02/21 22:06> MDM MDM Narrative Medical decision making narrative: I saw and evaluated this patient with the PA and agree with history, physical. 81-year-old female presenting after a fall downstairs. She was carrying some objects up stairs in her home and fell backwards about 4-5 steps. She did not lose consciousness. She does complain of back pain and has not been ambulatory yet. Patient is alert and awake. CBC and BMP are obtained and it does appear that she has a slight leukocytosis of 11.9. LINDA globin is stable at 10.3. Platelets 228. sodium is low at 122. Looking back in the records it appears that she has always been low. She is not describing any dizziness or lightheadedness. Is unclear if this is a source of the fall. Patient also on chemotherapy and has been weak and this is for esophageal cancer. CT brain was negative for acute findings. CT of the cervical spine was negative for acute fracture but does show fluid-filled thoracic esophagus which is likely associated with patient's known esophageal cancer. CT of the chest abdomen pelvis was performed and shows a right parasymphyseal superior ramus fracture with intermediate density fluid collection posterior to the superior ramus measuring 3.1 x 4.4 cm,probable hematoma. No extravasation/active bleeding. She does have small bilateral pleural effusions. When I went in the room to reevaluate the patient and to tell her of the results of the CT of the abdomen pelvis the patient was at a bedside commode. I instructed the nurse to have her get back to bed. Dueñas catheter is placed. Urinalysis will be sent. I did add blood work for follow-up for the trauma center. This includes a troponin, EtOH level, PT/INR. I obtained an EKG which on my interpretation shows a sinus rhythm with a ventricular rate of 85 bpm with slight sinus arrhythmia. No ST elevations or depressions. Patient was discussed with Dr. Batres at [facility] in the ED. He did accept the patient ER to ER for trauma evaluation. All lab work and imaging was discussed. Patient's findings were discussed with her daughter and she at the bedside at length. Patient is transferred in stable condition. Impression: 1. Fall 2. Closed head injury 3. Lumbar contusion 4. Hyponatremia 5. Right superior rami fracture with 3.1 x 4.4 cm hematoma 6. Bilateral pleural effusions Lab Data Attestation: I reviewed the patient's lab results. Labs: Laboratory Results - last 24 hr 12/02/21 12/02/21 19:28 19:28 WBC 11.9 H RBC 2.95 L Hgb 10.3 L Hct 30.9 L MCV 104.7 H MCH 34.9 H MCHC 33.3 RDW Std Deviation 64.7 H RDW Coeff of Vin 17.1 H Plt Count 228 MPV 9.6 Immature Gran % (Auto) 3.400 H Neut % (Auto) 87.1 H Lymph % (Auto) 1.3 L [place] % (Auto) 7.9 Eos % (Auto) 0.1 Baso % (Auto) 0.2 Absolute Neuts (auto) 10.4 H Absolute Lymphs (auto) 0.16 L Nucleated RBC % 0 Differential Comment Sodium 122 L Potassium 5.3 H Chloride 88 L Carbon Dioxide 31.0 Anion Gap 3 L BUN 26 H Creatinine 0.63 Estim Creat Clear Calc 32.77 Est GFR (MDRD) Af Amer 117 Est GFR (MDRD) Non-Af 97 BUN/Creatinine Ratio 41.3 H Glucose 108 H Calcium 8.5 Radiography Diagnostic Testing: Clinical Impression(s) from Imaging Studies Cervical Spine CT 12/02/21 18:57 IMPRESSION: 1. No acute findings in the cervical spine. 2. Multilevel degenerative changes. 3. Fluid-filled thoracic esophagus. Electronically Signed: Adam Prado MD ([place]) at 21:03 EST , Brain CT 12/02/21 20:45 IMPRESSION: No acute intracranial hemorrhage or mass effect. Electronically Signed: Adam Prado MD ([place]) at 21:01 EST , Chest/Abdomen/Pelvis CT 12/02/21 20:56 IMPRESSION: 1. Small bilateral pleural effusions. 2. Fluid-filled esophagus with esophageal stent. There is narrowing above the esophageal stent suggesting stricture (benign and malignant causes possible). 3. Right parasymphyseal superior ramus fracture with intermediate density fluid collection posterior to the superior ramus measuring 3.1 x 4.4 cm, probable hematoma. No extravasation/active bleeding. Electronically Signed: Adam Prado MD ([place]) at 21:21 EST , Discharge Plan Triage Chief Complaint: Fall ED Provider: Adama Tapia Dx/Rx/DC Orders Prescriptions: No Action carvedilol 25 mg tablet 25 mg PO DAILY RF: 0 calcium carbonate-vitamin D3 [Calcium 600 with Vitamin D3] 600 mg(1,500mg) -500 unit capsule 1 cap PO DAILY RF: 0 cholecalciferol (vitamin D3) 10 mcg (400 unit) capsule 20 mcg PO DAILY RF: 0 metoclopramide HCl 5 mg tablet 5 mg PO DAILY RF: 0 famotidine 20 mg tablet 20 mg PO BID RF: 0 citalopram 20 mg tablet 20 mg PO DAILY RF: 0 atorvastatin 20 mg tablet 20 mg PO DAILY Qty: 90 RF: 3 Primary Care Provider: Salomón Mayo
[2021-12-02 20:14] LABS: Absolute Lymphocyte Count 0.16 X10^3/uL (0.83-4.51); Absolute Neutrophil Count 10.4 X10^3/uL (2.0-7.7); Basophil# 0.02 X10^3/uL; Basophil% 0.2 % (0-1); Eosinophil# 0.01 X10^3/uL; Eosinophils% 0.1 % (0-5); Hematocrit 30.9 % (37-47); Hemoglobin 10.3 g/dL (12.0-15.0); Lymphocyte # 0.16 X10^3/ul (0.83-4.51); Lymphocyte % 1.3 % (19-41); Mean Corp Hgb Conc 33.3 g/dL (32-36); Mean Corpuscular Hgb 34.9 pg (27.0-32.0); Mean Corpuscular Volume 104.7 fL (81-99); Mean Platelet Vol. 9.6 fl (6.2-12.0); Monocyte# 0.94 X10^3/uL; Monocyte% 7.9 % (0-10); NRBC Flagged by Analyzer 0 % (0-5); Neutrophil # 10.36 X10^3/uL (2.7-7.7); Neutrophil % 87.1 % (47-70); POSITIVE DIFFERENTIAL YES; Platelet Count 228 K/mm3 (150-450); RBC Distribution Width CV 17.1 % (11.6-14.6); RBC Distribution Width SD 64.7 fl (35.1-43.9); Red Blood Count 2.95 M/mm3 (4.2-5.4); White Blood Count 11.9 K/mm3 (4.4-11.0)
[2021-12-02 20:18] LABS: Differential Indicated SCAN CRITERIA MET
[2021-12-02 20:28] LABS: Anion Gap 3 (5-15); BUN 26 mg/dL (7-18); BUN/Creat Ratio 41.3 RATIO (10-20); Calcium,Total 8.5 mg/dL (8.5-10.1); Chloride 88 mmol/L (98-107); Creatinine, Serum 0.63 mg/dL (0.55-1.02); EST Glomerular Filtration Rate 97 mL/min (>60); Est Glom Filt Rate - Afr Amer 117 mL/min (>60); Estimated Creatinine Clearance 32.77 ml/min; Glucose 108 mg/dL (74-106); Potassium 5.3 mmol/L (3.5-5.1); Sodium Level 122 mmol/L (136-145)
--- NOTE | 2021-12-02 20:45 | CT_ITS ---
STUDY: CT BRAIN WITHOUT CONTRAST REASON FOR EXAM: Female, 81 years old. head injury RADIATION DOSAGE (If Supplied By Facility): CTDIvol = ( 44.99 ) mGy, DLP = ( 779.24 ) mGycm TECHNIQUE: Transaxial CT imaging of the brain was performed without administration of intravenous contrast material. Individualized dose optimization techniques were used for this CT. COMPARISON: 12/29/2015 FINDINGS: Normal soft tissue structures. Normal calvarium. There is mild cerebral atrophy with widening of the extra-axial spaces and ventricular dilatation. There are areas of decreased attenuation within the white matter tracts of the supratentorial brain, consistent with microvascular disease changes. Normal basal ganglia and thalami. Normal brainstem. Normal cerebellum. Atherosclerosis of the carotid siphons and vertebral arteries. There is no intracranial hemorrhage. There are no findings of an acute ischemic infarction. Chronic sinus disease of the right maxillary sinus with complete opacification. CT/Brain/Head without Contrast IMPRESSION: No acute intracranial hemorrhage or mass effect. Electronically Signed: Adam Prado MD ([place]) at 21:01 EST Reading Location ID and State: [facility] / [place] , Service support ,
--- NOTE | 2021-12-02 20:56 | CT_ITS ---
EXAM: CT CHEST, ABDOMEN AND PELVIS WITH INTRAVENOUS CONTRAST CLINICAL INDICATION: trauma TECHNIQUE: Helically acquired images were obtained of the chest, abdomen and pelvis with intravenous contrast. This CT exam was performed using one or more of the following dose reduction techniques: automated exposure control, adjustment of the mA and/or kV according to patient size, and/or use of iterative reconstruction technique. This report was created using [employer] report generation technology. CONTRAST: IV 75mL Isovue-370 COMPARISON: None. FINDINGS: CHEST: LUNGS AND PLEURAL SPACES: Small bilateral pleural effusions. Atelectasis in the lung bases. No mass. No pneumothorax. HEART: Mild cardiomegaly. Trace volume pericardial effusion. No significant coronary artery calcifications. MEDIASTINUM: Fluid-filled esophagus with esophageal stent. There is narrowing above the esophageal stent suggesting stricture. No mediastinal or hilar adenopathy. No hiatal hernia. THYROID: Unremarkable. No thyroid lesions. ABDOMEN: LIVER: Unremarkable. Homogeneous. No focal mass. GALLBLADDER AND BILE DUCTS: Gallbladder is contracted. No calcified gallstones. No gallbladder distention or wall edema. No intra- or extrahepatic biliary ductal dilation. PANCREAS: Unremarkable. No focal cystic or solid mass. SPLEEN: Unremarkable. Normal size without focal cystic or solid mass. ADRENALS: Unremarkable. No nodules. KIDNEYS AND URETERS: Unremarkable. Normal renal size and position. No hydronephrosis. STOMACH AND BOWEL: High density barium in bowel/colon metastases exam. No stomach or bowel distention. No focal inflammatory change. PELVIS: APPENDIX: No evidence of acute appendicitis. BLADDER: Unremarkable. REPRODUCTIVE: Unremarkable as visualized. No mass. CHEST, ABDOMEN and PELVIS: INTRAPERITONEAL SPACE: Unremarkable. No ascites or other fluid collection. No free air. BONES/JOINTS: Right parasymphyseal superior ramus fracture with intermediate density fluid collection posterior to the superior ramus measuring 3.1 x 4.4 cm, probable hematoma. Degenerative changes of the thoracic and lumbar spine. No suspicious lytic or blastic abnormality. SOFT TISSUES: Unremarkable. No discrete abdominal or pelvic wall hernia. VASCULATURE: Unremarkable. Aorta is non-dilated. No aortic dissection. No obvious central pulmonary embolism although this study was not performed with the pulmonary embolism protocol. LYMPH NODES: Unremarkable. No enlarged lymph nodes. CT/CT Chest, Abd, Pel w/Contrast IMPRESSION: 1. Small bilateral pleural effusions. 2. Fluid-filled esophagus with esophageal stent. There is narrowing above the esophageal stent suggesting stricture (benign and malignant causes possible). 3. Right parasymphyseal superior ramus fracture with intermediate density fluid collection posterior to the superior ramus measuring 3.1 x 4.4 cm, probable hematoma. No extravasation/active bleeding. Electronically Signed: Adam Prado MD ([place]) at 21:21 EST Reading Location ID and State: [facility] / [place] , Service support ,
--- NOTE | 2021-12-02 21:42 | EKG12_ITS ---
Test Reason : FALL Blood Pressure : / mmHG Vent. Rate : 085 BPM Atrial Rate : 085 BPM P-R Int : 174 ms QRS Dur : 074 ms QT Int : 330 ms P-R-T Axes : 063 004 100 degrees QTc Int : 392 ms Normal sinus rhythm with sinus arrhythmia Septal infarct , age undetermined Confirmed by MELINDA BURKETT, DWAYNE ([id number]), editorial clerk LOLA PEDROZA ([id number]) on 12/04/2021 10:21:17 AM Referred By: EMILY Confirmed By:DWAYNE LAWRENCE MD
[2021-12-02 22:05] LABS: Mucous, Urine 0 SEEN /hpf (<or=2+); White Blood Cells 0 SEEN /hpf (0-5)
[2021-12-02 22:06] LABS: Color, Urine Yellow (Yellow); Glucose, Dipstick Normal (Normal); Ketone-Dipstick Negative (Negative); Leukocyte Esterase-Dipstick Negative /ul (Negative); Nitrite-Dipstick Negative (Negative); Occult Blood-Urine Negative /ul (Negative); Protein-Dipstick Negative (Negative); Urine Bilirubin Dipstick Negative (Negative); Urine Clarity Clear (Clear); Urine Urobilinogen 1 mg/dl (Normal)
[2021-12-02 22:13] LABS: Bacteria RARE /hpf (None Seen); Red Blood Cells-Urine 0-5 SEEN /hpf (0-5); Squamous Epithelial Cells - UA 0-5 SEEN /hpf (5-10)
[2021-12-02 22:20] VITALS: BP 162/85; PULSE 91; RESP 18; TEMP 37.4; O2SAT 91
[2021-12-02 22:29] VITALS: BP 162/85; PULSE 91; RESP 18; TEMP 37.4; O2SAT 91
== END 2021-12-02 22:32 | disposition short-term general hospital (02) ==
PROVIDERS: Physician Assistant; Emergency Provider Student in an Organized Health Care Education/Training Program; PCP Family Medicine; Visit Provider Student in an Organized Health Care Education/Training Program
DX: S32.511A Fracture of superior rim of right pubis, initial encounter for closed fracture (principal); C15.9 Malignant neoplasm of esophagus, unspecified; Z93.1 Gastrostomy status; S09.90XA Unspecified injury of head, initial encounter; S30.0XXA Contusion of lower back and pelvis, initial encounter; S30.1XXA Contusion of abdominal wall, initial encounter; E78.5 Hyperlipidemia, unspecified; I10 Essential (primary) hypertension; W10.9XXA Fall (on) (from) unspecified stairs and steps, initial encounter; Y93.9 Activity, unspecified; Y92.9 Unspecified place or not applicable; I25.2 Old myocardial infarction; I51.81 Takotsubo syndrome; Z79.899 Other long term (current) drug therapy; J90 Pleural effusion, not elsewhere classified; E87.1 Hypo-osmolality and hyponatremia
CPT/HCPCS: 70450; 71260; 72125; 74177; 80048; 81001; 85025; 93005; 99285; Q9967; A4216

== ENCOUNTER → 2021-12-11 | Outpatient (REF) | payer SELFPAY ==
[2021-12-11 10:04] LABS: Hemoglobin 9.2 g/dL (12.0-15.0); Mean Corp Hgb Conc 32.9 g/dL (32-36); Mean Corpuscular Volume 106.5 fL (81-99); Mean Platelet Vol. 10.4 fl (6.2-12.0); POSITIVE MORPHOLOGY YES; Platelet Count 237 K/mm3 (150-450); RBC Distribution Width SD 66.1 fl (35.1-43.9); Red Blood Count 2.63 M/mm3 (4.2-5.4); White Blood Count 14.2 K/mm3 (4.4-11.0)
[2021-12-11 10:06] LABS: Scan Indicated on CBC? Y/N YES- FLAGS NOTED
[2021-12-11 10:40] LABS: Anion Gap 8 (5-15); BUN 36 mg/dL (7-18); BUN/Creat Ratio 80.7 RATIO (10-20); Calcium,Total 7.9 mg/dL (8.5-10.1); Chloride 101 mmol/L (98-107); Creatinine, Serum 0.45 mg/dL (0.55-1.02); EST Glomerular Filtration Rate 144 mL/min (>60); Est Glom Filt Rate - Afr Amer 175 mL/min (>60); Glucose 170 mg/dL (74-106); Potassium 4.1 mmol/L (3.5-5.1); Sodium Level 138 mmol/L (136-145)
== END | disposition home or self-care (01) ==
LOC: OLS.WHLTCC 04:00
PROVIDERS: PCP Family Medicine; Visit Provider Family Medicine
DX: C15.9 Malignant neoplasm of esophagus, unspecified (principal); R13.12 Dysphagia, oropharyngeal phase; E87.1 Hypo-osmolality and hyponatremia; S32.501D Unspecified fracture of right pubis, subsequent encounter for fracture with routine healing
CPT/HCPCS: 36415; 80048; 85027

== ENCOUNTER 2021-12-14 17:16 | Inpatient (IN) | payer MEDICARE, OTHER, SELFPAY ==
[2021-12-14 17:19] VITALS: BP 104/67; PULSE 90; RESP 17; TEMP 37.2; O2SAT 94; BMI 20.2
[2021-12-14 17:25] VITALS: BP 104/67; PULSE 90; RESP 17; TEMP 37.2; O2SAT 94
--- NOTE | 2021-12-14 17:35 | EKG12_ITS ---
Test Reason : ABNORM LABS Blood Pressure : / mmHG Vent. Rate : 101 BPM Atrial Rate : 101 BPM P-R Int : 164 ms QRS Dur : 072 ms QT Int : 356 ms P-R-T Axes : 066 -16 104 degrees QTc Int : 461 ms Sinus tachycardia with Premature atrial complexes Inferior infarct , age undetermined Anterior infarct , age undetermined Abnormal ECG Confirmed by JACKELIN BURKETT, SANG ([id number]), city editor LOLA PEDROZA ([id number]) on 12/18/2021 1:20:54 PM Referred By: Confirmed By:RICARDO BENÍTEZ MD
--- NOTE | 2021-12-14 17:36 | EX.ED.DYSGE1 ---
HPI History of Present Illness Chief Complaint: Abn Labs Narrative Narrative: History and physical is limited secondary to the patient's age. She presents from her oncologist, Dr. Martínez's office. She has history of metastatic esophageal carcinoma. She was seen recently in the emergency department on December 01 according to her daughter after she had fallen. She had a pelvic fracture with hematoma. They state that she went to [facility] then was sent to the TCU/transitional care unit at an outside facility. She presents because of reported weakness, mental status change, and elevated white count. At the oncologist office she had a low blood pressure. No fever. She does have an indwelling Dueñas catheter because she is unable to ambulate well secondary to her pelvic fracture. Her daughter is at the bedside. 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 She presents with shakiness, weakness, and confusion with concern for urinary tract infection. Her daughter also presents the [facility] DO NOT RESUSCITATE comfort care only form filled out and signed by Dr. Martínez, and daughter states there was concern about her returning to the transitional care unit because they may not be able to get her antibiotics for urinary tract infection. [facility] Medical History Decubitus ulcer of right buttock, stage 3 Esophageal cancer Essential (primary) hypertension HLD (hyperlipidemia) Hypokalemia Hyponatremia Non-ST elevation myocardial infarction (NSTEMI), type 2 (06/11/16) Physical debility Takotsubo cardiomyopathy transient hypoxia Home Medications carvedilol 25 mg tablet 25 mg PO DAILY 09/10/19 [History Last Taken Unknown] calcium carbonate 600 mg-vitamin D3 12.5 mcg (500 unit) capsule 1 cap PO DAILY cap 12/09/20 [History Last Taken Unknown] cholecalciferol (vitamin D3) 10 mcg (400 unit) capsule 20 mcg PO DAILY cap 12/09/20 [History Last Taken Unknown] famotidine 20 mg tablet 20 mg PO BID tab 12/09/20 [History Last Taken Unknown] metoclopramide HCl 5 mg tablet 5 mg PO DAILY tab 12/09/20 [History Last Taken Unknown] atorvastatin 20 mg tablet 20 mg PO DAILY #90 tab 02/27/21 [Rx Last Taken Unknown] citalopram 20 mg PO DAILY 12/02/21 [History Last Taken Unknown] Allergy/AdvReac Type Severity Reaction Status Date / Time hydrocodone [From [place]] Allergy Unknown Verified 12/14/21 17:18 Penicillins Allergy Rash Verified 12/14/21 17:18 Sulfa (Sulfonamide AdvReac Upset Verified 12/14/21 17:18 Antibiotics) Stomach Family History Brother CAD (coronary artery disease) Father CVA (cerebral vascular accident) Mother CVA (cerebral vascular accident) Surgical History H/O: hysterectomy History of left heart catheterization (06/11/16) Hx of appendectomy Social History Smoking Status: Never smoker alcohol intake: never substance use type: does not use ROS ROS ED ROS Narrative Constitutional: No fever, no chills. Reported hypotension. HEENT: No sore throat. No neck pain. No loss of vision. No rhinorrhea. Cardiovascular: No chest pain. No palpitations. No pedal edema. Respiratory: No cough, no shortness of breath. Abdominal: No abdominal pain. No nausea. No vomiting. Genitourinary: No dysuria. No hematuria. Musculoskeletal: No myalgias. No arthralgias. Neurologic: No headaches. No dizziness. No lightheadedness. Generalized weakness. Shakiness and tremors. Skin: No rash. No change in color. Psychiatric: No depression. No anxiety. Reported confusion. Review of Systems ROS Unobtainable: due to mental status EXAM Physical Exam Narrative Exam Narrative: Afebrile. Vital signs noted. HEENT: Normocephalic. Atraumatic. PERRL, EOMI. Neck soft and supple. No point tenderness or step off. Cardiovascular: Regular rate and rhythm. No murmurs, rubs, or gallops appreciated. Respiratory: No tachypnea. Lungs clear to auscultation bilaterally. Gastrointestinal: Abdomen soft, nontender, with normoactive bowel sounds. No rebound or guarding. Neurological: Awake. Alert. Nonfocal, nonlateralizing. Generalized weakness. Needs assistance with transfer from wheelchair to bed. Mild tremor at rest of arms and legs. Skin: No rash. Normal color. No pallor. Musculoskeletal: No pedal edema. Full range of motion extremities. Const Vital Signs: 12/14/21 17:19 12/14/21 17:25 12/14/21 18:33 Temperature 98.9 F 98.9 F Temperature Source Temporal Temporal Pulse Rate 90 90 Respiratory Rate 17 17 Respiratory Effort Normal Non-Labored Respiratory Pattern Normal Blood Pressure 104/67 104/67 Blood Pressure Mean 79 79 Pulse Ox 94 94 Oxygen Delivery Method Room Air Room Air 12/14/21 19:00 Temperature 98.8 F Temperature Source Temporal Pulse Rate 96 Respiratory Rate 19 H Respiratory Effort Respiratory Pattern Blood Pressure 101/51 L Blood Pressure Mean 67 Pulse Ox 96 Oxygen Delivery Method Room Air MDM MDM MDM Narrative Medical decision making narrative: Patient presents with her daughter with concern for urinary tract infection mental status change because of her indwelling Dueñas. Sepsis work-up was pursued. She is not hypotensive here in the emergency department. I did view the [facility] DO NOT RESUSCITATE comfort care only form filled out by Dr. Martínez. Additionally, he wanted her to start ciprofloxacin 250 mg orally and to stop the Reglan because he thought that that was the cause of her tremors and shakiness. She does have an elevated white count of 15.8, hemoglobin stable at 9.8, platelet count 281. INR is 1.2 and normal. Electrolyte panel shows CO2 elevated at 33 with a glucose of 152 but normal anion gap of 6. Lactic acid elevated at 2.4. She was bolused normal saline. I will start her on Rocephin. Her urinalysis is still pending. Her chest x-ray does show right lower lobe infiltrate, but she is not showing signs of pneumonia with a cough or fever, but she does have increased confusion according to her daughter. Given her lactic acidosis, I do feel that she requires admission. She was started on aztreonam secondary to a penicillin allergy. I did have a lengthy discussion with the patient's daughter. 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 She does not want hospice involved. I do feel that she would require more of a social work consultation to find out where the patient would be discharged to after her hospital admission. I discussed patient with Dr. Caldwell. She will be admitted to the PCU in stable condition. Lab Data Attestation: I reviewed the patient's lab results. Labs: Laboratory Results - last 24 hr 12/14/21 12/14/21 12/14/21 18:00 18:00 18:00 WBC 15.8 H RBC 2.75 L Hgb 9.8 L Hct 30.3 L MCV 110.2 H MCH 35.6 H MCHC 32.3 RDW Std Deviation 66.7 H RDW Coeff of Vin 16.6 H Plt Count 281 MPV 10.6 Immature Gran % (Auto) 1.100 H Neut % (Auto) 87.5 H Lymph % (Auto) 2.9 L [place] % (Auto) 8.4 Eos % (Auto) 0.0 Baso % (Auto) 0.1 Absolute Neuts (auto) 13.9 H Absolute Lymphs (auto) 0.46 L Nucleated RBC % 0 Differential Comment SEE COMMENT Platelet Estimate ADEQUATE RBC Morphology N CHROM Anisocytosis 1+ Macrocytosis 1+ PT 14.1 INR 1.2 APTT 29.4 Sodium 139 Potassium 3.7 Chloride 100 Carbon Dioxide 33.0 H Anion Gap 6 BUN 71 H Creatinine 0.69 Estim Creat Clear Calc 32.77 Est GFR (MDRD) Af Amer 105 Est GFR (MDRD) Non-Af 87 BUN/Creatinine Ratio 102.8 H Glucose 152 H Lactic Acid Calcium 8.5 Total Bilirubin 0.30 AST 45 H ALT 56 Alkaline Phosphatase 122 H Total Protein 5.9 L Albumin 1.8 L Globulin 4.1 Albumin/Globulin Ratio 0.4 L Urine Color Urine Clarity Urine pH Ur Specific [place] Urine Protein Urine Glucose (UA) Urine Ketones Urine Occult Blood Urine Nitrite Urine Bilirubin Urine Urobilinogen Ur Leukocyte Esterase Urine RBC Urine WBC Ur Squamous Epith Cells Urine Bacteria Urine Mucus 12/14/21 12/14/21 18:00 18:40 WBC RBC Hgb Hct MCV MCH MCHC RDW Std Deviation RDW Coeff of Vin Plt Count MPV Immature Gran % (Auto) Neut % (Auto) Lymph % (Auto) [place] % (Auto) Eos % (Auto) Baso % (Auto) Absolute Neuts (auto) Absolute Lymphs (auto) Nucleated RBC % Differential Comment Platelet Estimate RBC Morphology Anisocytosis Macrocytosis PT INR APTT Sodium Potassium Chloride Carbon Dioxide Anion Gap BUN Creatinine Estim Creat Clear Calc Est GFR (MDRD) Af Amer Est GFR (MDRD) Non-Af BUN/Creatinine Ratio Glucose Lactic Acid 2.4 H* Calcium Total Bilirubin AST ALT Alkaline Phosphatase Total Protein Albumin Globulin Albumin/Globulin Ratio Urine Color Yellow Urine Clarity Clear Urine pH 6.0 Ur Specific [place] 1.010 Urine Protein 30 H Urine Glucose (UA) Normal Urine Ketones Negative Urine Occult Blood 50 H Urine Nitrite Negative Urine Bilirubin Negative Urine Urobilinogen Normal Ur Leukocyte Esterase 500 H Urine RBC 0-5 SEEN Urine WBC 5-10 SEEN Ur Squamous Epith Cells 0-5 SEEN Urine Bacteria RARE Urine Mucus 0 SEEN Radiography Diagnostic Testing: Clinical Impression(s) from Imaging Studies Chest X-Ray 12/14/21 18:07 IMPRESSION: There is a right pleural effusion. Right lower lobe infiltrate Electronically Signed: Roger Oliver MD at 18:27 EST Reading Location ID and State: [facility] / [place] , Service support , Discharge Plan Dx/Rx/DC Orders Clinical Impression: Confusion, Pneumonia Disposition Disposition: Acute Care [facility]
--- NOTE | 2021-12-14 18:07 | RAD_ITS ---
STUDY: X-RAY CHEST REASON FOR EXAM: Female, 81 years old. CHEST PAIN CAD TECHNIQUE: XR Chest 1 View COMPARISON: 06.11.16 FINDINGS: There is a right pleural effusion. Right lower lobe infiltrate. Esophageal stent noted. There is moderate cardiac enlargement. Normal mediastinum and earl. Normal visualized pulmonary arteries. There is atherosclerotic calcification of the aortic arch with tortuosity. There are diffuse degenerative changes of the visualized thoracic spine. There is degenerative osteoarthritis of the bilateral shoulders. There is no demonstrated abnormality of the visualized soft tissue structures of the upper abdomen. RAD/Chest 1 View (Portable) IMPRESSION: There is a right pleural effusion. Right lower lobe infiltrate Electronically Signed: Roger Oliver MD at 18:27 EST ,
[2021-12-14 18:09] LABS: Absolute Lymphocyte Count 0.46 X10^3/uL (0.83-4.51); Absolute Neutrophil Count 13.9 X10^3/uL (2.0-7.7); Basophil# 0.02 X10^3/uL; Basophil% 0.1 % (0-1); Hematocrit 30.3 % (37-47); Hemoglobin 9.8 g/dL (12.0-15.0); Lymphocyte # 0.46 X10^3/ul (0.83-4.51); Lymphocyte % 2.9 % (19-41); Mean Corp Hgb Conc 32.3 g/dL (32-36); Mean Corpuscular Hgb 35.6 pg (27.0-32.0); Mean Corpuscular Volume 110.2 fL (81-99); Mean Platelet Vol. 10.6 fl (6.2-12.0); Monocyte# 1.33 X10^3/uL; Monocyte% 8.4 % (0-10); NRBC Flagged by Analyzer 0 % (0-5); Neutrophil # 13.86 X10^3/uL (2.7-7.7); Neutrophil % 87.5 % (47-70); POSITIVE DIFFERENTIAL YES; POSITIVE MORPHOLOGY YES; Platelet Count 281 K/mm3 (150-450); RBC Distribution Width CV 16.6 % (11.6-14.6); RBC Distribution Width SD 66.7 fl (35.1-43.9); Red Blood Count 2.75 M/mm3 (4.2-5.4); White Blood Count 15.8 K/mm3 (4.4-11.0)
[2021-12-14 18:11] LABS: Differential Indicated SCAN CRITERIA MET
[2021-12-14 18:26] LABS: ALB/GLOB Ratio 0.4 RATIO (0.9-2.4); AST(SGOT) 45 U/L (15-37); Alanine Aminotransfer ALT/SGPT 56 U/L (13-56); Albumin, Serum 1.8 g/dL (3.2-5.0); Alkaline Phosphatase 122 U/L (45-117); Anion Gap 6 (5-15); BUN 71 mg/dL (7-18); BUN/Creat Ratio 102.8 RATIO (10-20); Calcium,Total 8.5 mg/dL (8.5-10.1); Chloride 100 mmol/L (98-107); Creatinine, Serum 0.69 mg/dL (0.55-1.02); EST Glomerular Filtration Rate 87 mL/min (>60); Est Glom Filt Rate - Afr Amer 105 mL/min (>60); Estimated Creatinine Clearance 32.77 ml/min; Globulin 4.1 g/dL (2.2-4.2); Glucose 152 mg/dL (74-106); International Normalized Ratio 1.2; Potassium 3.7 mmol/L (3.5-5.1); Protein, Total 5.9 g/dL (6.4-8.2); Prothrombin Time (Protime)PT. 14.1 SECONDS (11.7-14.9); Sodium Level 139 mmol/L (136-145)
[2021-12-14 18:27] LABS: Partial Thromboplast Time 29.4 Seconds (24.1-36.2)
[2021-12-14] MEDS: 0.9% Normal Saline 1,000 ML 999 ML IV (18:30)
[2021-12-14 18:32] LABS: Anisocytosis 1+; Macrocytosis 1+; Platelet Estimate ADEQUATE (ADEQ); Red Cell Morphology N CHROM NORMAL (NORM C&C)
--- NOTE | 2021-12-14 18:39 | ED.RN ---
critical result lactate 2.4 received from lab. notified
[2021-12-14 18:40] LABS: Lactic Acid 2.4 mmol/L (0.4-1.9)
[2021-12-14 18:46] LABS: Mucous, Urine 0 SEEN /hpf (<or=2+)
[2021-12-14 18:49] LABS: Color, Urine Yellow (Yellow); Glucose, Dipstick Normal (Normal); Ketone-Dipstick Negative (Negative); Leukocyte Esterase-Dipstick 500 /ul (Negative); Nitrite-Dipstick Negative (Negative); Occult Blood-Urine 50 /ul (Negative); Protein-Dipstick 30 mg/dl (Negative); Urine Bilirubin Dipstick Negative (Negative); Urine Clarity Clear (Clear); Urine Urobilinogen Normal (Normal)
[2021-12-14 18:56] LABS: Bacteria RARE /hpf (None Seen); Red Blood Cells-Urine 0-5 SEEN /hpf (0-5); Squamous Epithelial Cells - UA 0-5 SEEN /hpf (5-10); White Blood Cells 5-10 SEEN /hpf (0-5)
[2021-12-14 19:00] VITALS: BP 101/51; PULSE 96; RESP 19; TEMP 37.1; O2SAT 96
[2021-12-14 19:36] VITALS: BP 99/53; PULSE 97; RESP 14; TEMP 37.2; O2SAT 97
--- NOTE | 2021-12-14 19:41 | HP.PCM.HOS_ITS ---
HPI - General General Date of Admission: 12/14/21 Date of Service: 12/14/21 Chief Complaint: Abnormal blood work - 1day HPI Narrative PAMELA HOLM, is a 81 F who presents with the above. Patient recently had a fall and sustained pelvic fracture with hematoma 2 weeks ago. She was seen in [facility]. She subsequently was discharged to TCU in [facility]. Patient has history of metastatic esophageal CA had gone for her routine follow-up with [facility] oncology. She was found to be hypoactive to previous baseline prior to her fall 2 weeks. Patient's blood work in the office showed WBC count of 15.8. Her blood pressure was relatively low also in the oncologist office. Her oncologist was concerned about possible sepsis. In the emergency room, her vitals show temperature of 98.9F, blood pressure 104/67, heart rate 90, respiratory rate 17, SPO2 is 94% on room air Admitting blood work showed WBC count of 15.8 left shift, hemoglobin is 9.8, platelet count 281, INR 1.2, CMP was significant for BUN of 71, creatinine 0.69. Lactic acid was 2.4. UA was clear, esterase 500, WBC count 5-10, rare bacteria. Chest x-ray shows a right pleural effusion with a right lower lobe infiltrate. Patient was seen at the bedside. Denied any fever chills or cough. She is alert oriented x3. No diarrhea. Her daughter stated that patient appears more hypoactive and sleeping a lot. [facility] Medical History Decubitus ulcer of right buttock, stage 3 Esophageal cancer Essential (primary) hypertension HLD (hyperlipidemia) Hypokalemia Hyponatremia Non-ST elevation myocardial infarction (NSTEMI), type 2 (06/11/16) Physical debility Takotsubo cardiomyopathy transient hypoxia Home Medications carvedilol 25 mg tablet 25 mg PO DAILY 09/10/19 [History Last Taken Unknown] calcium carbonate 600 mg-vitamin D3 12.5 mcg (500 unit) capsule 1 cap PO DAILY cap 12/09/20 [History Last Taken Unknown] cholecalciferol (vitamin D3) 10 mcg (400 unit) capsule 20 mcg PO DAILY cap 12/09/20 [History Last Taken Unknown] famotidine 20 mg tablet 20 mg PO BID tab 12/09/20 [History Last Taken Unknown] metoclopramide HCl 5 mg tablet 5 mg PO DAILY tab 12/09/20 [History Last Taken Unknown] atorvastatin 20 mg tablet 20 mg PO DAILY #90 tab 02/27/21 [Rx Last Taken Unknown] citalopram 20 mg PO DAILY 12/02/21 [History Last Taken Unknown] Allergy/AdvReac Type Severity Reaction Status Date / Time hydrocodone [From [place]] Allergy Unknown Verified 12/14/21 17:18 Penicillins Allergy Rash Verified 12/14/21 17:18 Sulfa (Sulfonamide AdvReac Upset Verified 12/14/21 17:18 Antibiotics) Stomach Family History Brother CAD (coronary artery disease) Father CVA (cerebral vascular accident) Mother CVA (cerebral vascular accident) Surgical History H/O: hysterectomy History of left heart catheterization (06/11/16) Hx of appendectomy Social History Smoking Status: Never smoker alcohol intake: never substance use type: does not use ROS ROS Narrative Constitutional: Reports: Malaise, Weakness, Fatigue. Denies: Anorexia, Chills, Fever, Night Sweats, Weight Change Eyes: Denies: Blurred vision, Cataracts, Conjunctivae Inflammation, Pain, Redness, Vision Change HEENT: Denies: Difficulty Hearing, Difficulty Swallowing, Head Aches, Hearing Changes, Sinus Congestion, Sinus Drainage Cardiovascular: Denies: Chest Pain, Orthopnea, Palpitations Respiratory: Denies: Cough, Shortness of breath at rest, Sputum production Gastrointestinal: Denies: Abdominal Pain, Nausea, Vomiting Genitourinary: Denies: Dysuria Musculoskeletal: Denies: Joint Pain, Joint stiffness, Joint swelling, Joint Tenderness Skin: Denies: Rash, Wounds Neurological: Denies: Numbness, Tingling, Focal weakness Vital Signs Vital Signs Vital Signs: 12/14/21 17:19 12/14/21 17:25 12/14/21 18:33 Temperature 98.9 F 98.9 F Temperature Source Temporal Temporal Pulse Rate 90 90 Respiratory Rate 17 17 Respiratory Effort Normal Non-Labored Respiratory Pattern Normal Blood Pressure 104/67 104/67 Blood Pressure Mean 79 79 Pulse Ox 94 94 Oxygen Delivery Method Room Air Room Air 12/14/21 19:00 Temperature 98.8 F Temperature Source Temporal Pulse Rate 96 Respiratory Rate 19 H Respiratory Effort Respiratory Pattern Blood Pressure 101/51 L Blood Pressure Mean 67 Pulse Ox 96 Oxygen Delivery Method Room Air Weight Weight: 47.174 kg Body Mass Index (BMI) 20.2 Physical Exam Narrative Physical exam: General: Alert, Oriented x3, Cooperative, No apparent distress, appears frail HEENT: Atraumatic Oral: Moist Mucosa Neck: Supple Lungs: Diminished at the lung bases Cardiovascular: HS I+II, regular, no murmurs Abdomen: PEG tube present, Bowel Sounds Present, Soft, Non Tender Extremities: No edema Skin: Coccygeal stage II-III decubitus ulcer, skin tear back, stage I Results Lab / Micro Data Result Diagrams: 12/14/21 18:00 12/14/21 18:00 Labs: Laboratory Results - last 24 hr 12/14/21 18:00: WBC 15.8 H, RBC 2.75 L, Hgb 9.8 L, Hct 30.3 L, MCV 110.2 H, MCH 35.6 H, MCHC 32.3, RDW Std Deviation 66.7 H, RDW Coeff of Vin 16.6 H, Plt Count 281, MPV 10.6, Immature Gran % (Auto) 1.100 H, Neut % (Auto) 87.5 H, Lymph % (Auto) 2.9 L, [place] % (Auto) 8.4, Eos % (Auto) 0.0, Baso % (Auto) 0.1, Absolute Neuts (auto) 13.9 H, Absolute Lymphs (auto) 0.46 L, Nucleated RBC % 0, Differential Comment SEE COMMENT, Platelet Estimate ADEQUATE, RBC Morphology N CHROM, Anisocytosis 1+, Macrocytosis 1+ 12/14/21 18:00: PT 14.1, INR 1.2, APTT 29.4 12/14/21 18:00: Sodium 139, Potassium 3.7, Chloride 100, Carbon Dioxide 33.0 H, Anion Gap 6, BUN 71 H, Creatinine 0.69, Estim Creat Clear Calc 32.77, Est GFR (MDRD) Af Amer 105, Est GFR (MDRD) Non-Af 87, BUN/Creatinine Ratio 102.8 H, Glucose 152 H, Calcium 8.5, Total Bilirubin 0.30, AST 45 H, ALT 56, Alkaline Phosphatase 122 H, Total Protein 5.9 L, Albumin 1.8 L, Globulin 4.1, Albumin/Globulin Ratio 0.4 L 12/14/21 18:00: Lactic Acid 2.4 H* 12/14/21 18:40: Urine Color Yellow, Urine Clarity Clear, Urine pH 6.0, Ur Specific [place] 1.010, Urine Protein 30 H, Urine Glucose (UA) Normal, Urine Ketones Negative, Urine Occult Blood 50 H, Urine Nitrite Negative, Urine Bilirubin Negative, Urine Urobilinogen Normal, Ur Leukocyte Esterase 500 H, Urine RBC 0-5 SEEN, Urine WBC 5-10 SEEN, Ur Squamous Epith Cells 0-5 SEEN, Urine Bacteria RARE, Urine Mucus 0 SEEN Radiology Impression Chest X-Ray 12/14/21 18:07 IMPRESSION: There is a right pleural effusion. Right lower lobe infiltrate Electronically Signed: Roger Oliver MD at 18:27 EST Reading Location ID and State: [facility] / [place] , Service support , Assessment & Plan Assessment/Plan (1) Pneumonia: QUALIFIERS: Laterality: right Lung location: lower lobe of lung Pneumonia type: due to unspecified organism Qualified Code(s): J18.9 - Pneumonia, unspecified organism (2) Sepsis: (3) Confusion: (4) Lactic acidosis: (5) Physical debility: (6) Severe malnutrition: PLAN: 1. Severe Sepsis secondary to pneumonia vs suspected aspiration pneumonia, not on oxygen ( HR, elevated WBC, lactic acid of 2.4). qSOFA is 1 Patient has history of metastatic esophageal CA status post stent, status post PEG tube History of penicillin allergy?rash; started on IV aztreonam Will continue on IV Levaquin, doxycycline and metronidazole 2. Decubitus ulcers, coccygeal stage 2-3, skin tear or stage 1 decubitus ulcer to mid posterior thorax, present on admission Wound RN consult 3. Metastatic esophageal CA, s/p esophageal stent, with history of chronic dysphagia Follows with Dr. Silverio and Dr. Martínez in the outpatient Not on any treatment at home Speech therapy consult, continue tube feeds 4. Severe malnutrition, BMI 20.5 in the setting of metastatic esophageal CA Nutrition consulted 5. Recent fall with pelvic fracture and hematoma Patient is asymptomatic at the moment Continue with Tylenol as needed, PT/OT to evaluate and treat 6. Hypertension/Hyperlipidemia, h/o Takotsubo cardiomyopathy 2D echo done in 2016 showed EF of 55%, no regional abnormalities Continue on atorvastatin, carvedilol 6. Debility related to above, PT/OT/ST 8. DVT prophylaxis?heparin subcu 9. CODE STATUS?DNR CCA, no intubation I discussed and explained in details the various types of CODE STATUS-full code, DNR CCA, DNR CC with the patient's daughter who is her POA at the bedside. She stated that her mom would like to be a DNR CCA, no intubation. Patient's was earlier on in Dr. Martínez's office made DNR CC. Daughter stated that she did not understand the meaning of DNR CCA. She thinks her mother should be a DNR CCA, no intubation. Time spent discussing CODE STATUS 18 minutes Charges/Coding Visit Charges Inpatient E&M: 83029 Init Hosp L3 Procedures Hospitalists Procedures: 99691 Advncd Care Plan 30 Min
--- NOTE | 2021-12-14 19:55 | CASEMGMT ---
MICHEAL SALEH note: RN CM to room to meet with patient for initial transition planning. Patient reported to be confused and appears restful upon RN DELFINO entering room. Patient's daughter Evelyn Zaragoza present at bedside and reports she is patient's POA. Daughter agreeable to speaking with MICHEAL SALEH. MICHEAL SALEH introduced self and role at [facility]. Evelyn reports patient currently living at [facility] transitional care unit for the past 6 days. Patient previously lived with Evelyn until fall down steps at home on 12/02/21. Patient was treated at [facility] ER on that date, diagnosed with pelvic fracture with hematoma and transferred to [facility]. From [facility], patient was discharged to [facility] for therapies. Patient has known esophageal cancer and follows with Dr. Martínez. When discussing discharge planning, daughter Evelyn appears tearful and admits to feeling overwhelmed. Support provided. Daughter reports she does not think patient has been bathed since arriving to [facility] and states, Not sure how impressed I am with facility but understands she is unable to care for patient at home at this time. Daughter provided with list of correction facilities including quality and resource use data and consistent with the patient's preferred geographic region, medical needs, and insurance network. Daughter made aware CM/SW to follow for any discharge planning/needs. Evelyn expressed appreciation for SNF list and states will be present in hospital tomorrow for further discussion. MICHEAL Kiran CM
[2021-12-14 20:24] VITALS: BP 107/61; PULSE 80; PULSE 97; RESP 16; TEMP 36.6; O2SAT 95; BMI 20.5
[2021-12-14] MEDS: levoFLOXacin IV 750 MG/150 ML BAG 100 MG IV (21:03)
[2021-12-14] MEDS: Heparin Injection (Vial) 5,000 UNIT/ML VIAL 5000 UNIT SC (22:01)
[2021-12-14] MEDS: 0.9% Normal Saline 1,000 ML 75 ML IV (22:01)
[2021-12-14 22:02] LABS: Reflex Lactate? Y
[2021-12-14 23:43] LABS: Lactic Acid 1.4 mmol/L (0.4-1.9)
[2021-12-15] VITALS (9 sets, daily range): BP systolic 90–108; BP diastolic 57–65; PULSE 85–103; RESP 12–16; TEMP 36.3–37; O2SAT 91–96
[2021-12-15] MEDS: Heparin Injection (Vial) 5,000 UNIT/ML VIAL 5000 UNIT SC ×3 (05:18→21:38)
[2021-12-15] MEDS: metroNIDAZOLE 500 MG/100 ML BAG 100 MG IV ×3 (05:18→21:38)
[2021-12-15 05:47] LABS: Absolute Lymphocyte Count 0.34 X10^3/uL (0.83-4.51); Absolute Neutrophil Count 11.7 X10^3/uL (2.0-7.7); Basophil# 0.01 X10^3/uL; Basophil% 0.1 % (0-1); Hematocrit 25.9 % (37-47); Hemoglobin 8.4 g/dL (12.0-15.0); Lymphocyte # 0.34 X10^3/ul (0.83-4.51); Lymphocyte % 2.6 % (19-41); Mean Corp Hgb Conc 32.4 g/dL (32-36); Mean Corpuscular Hgb 34.9 pg (27.0-32.0); Mean Corpuscular Volume 107.5 fL (81-99); Mean Platelet Vol. 10.7 fl (6.2-12.0); Monocyte# 0.91 X10^3/uL; NRBC Flagged by Analyzer 0 % (0-5); Neutrophil # 11.69 X10^3/uL (2.7-7.7); Neutrophil % 89.5 % (47-70); POSITIVE COUNT YES; POSITIVE DIFFERENTIAL YES; Platelet Count 241 K/mm3 (150-450); RBC Distribution Width CV 16.4 % (11.6-14.6); RBC Distribution Width SD 64.5 fl (35.1-43.9); Red Blood Count 2.41 M/mm3 (4.2-5.4); White Blood Count 13.1 K/mm3 (4.4-11.0)
[2021-12-15 05:56] LABS: Differential Indicated SCAN CRITERIA MET
[2021-12-15 06:29] LABS: ALB/GLOB Ratio 0.4 RATIO (0.9-2.4); AST(SGOT) 34 U/L (15-37); Alanine Aminotransfer ALT/SGPT 39 U/L (13-56); Albumin, Serum 1.4 g/dL (3.2-5.0); Alkaline Phosphatase 104 U/L (45-117); Anion Gap 5 (5-15); BUN 47 mg/dL (7-18); BUN/Creat Ratio 105.4 RATIO (10-20); Calcium,Total 8.5 mg/dL (8.5-10.1); Chloride 103 mmol/L (98-107); Creatinine, Serum 0.45 mg/dL (0.55-1.02); EST Glomerular Filtration Rate 144 mL/min (>60); Est Glom Filt Rate - Afr Amer 175 mL/min (>60); Estimated Creatinine Clearance 32.77 ml/min; Globulin 3.8 g/dL (2.2-4.2); Glucose 95 mg/dL (74-106); Potassium 3.4 mmol/L (3.5-5.1); Protein, Total 5.2 g/dL (6.4-8.2); Sodium Level 140 mmol/L (136-145)
[2021-12-15 06:42] LABS: Hypochromasia 1+; Platelet Estimate ADEQUATE (ADEQ)
[2021-12-15 06:43] LABS: Differential Comment SCANNED
[2021-12-15] MEDS: Potassium Chloride 10mEq/100mL 10 MEQ/100 ML IV.SOLN. 100 MEQ IV BOLUS ×3 (06:58→16:10)
--- NOTE | 2021-12-15 09:54 | WOUNDNOTE ---
wound photo: sacrum
--- NOTE | 2021-12-15 09:54 | WOUNDNOTE ---
wound photo: mid back
--- NOTE | 2021-12-15 11:46 | CASEMGMT ---
Social Work Pt admitted to hospital from [facility]. SW met with pt and dgt in room and introduced self and role of SW at [facility]. Pt sleeping at this time and did not awaken during visit. Pt dgt Evelyn Zaragoza requested to meet outside pt room. vEelyn tearful throughout conversation. SW spent time with Evelyn discussing pt's course of illness and offering emotional support. Discussed discharge options including return to [facility], changing facilities or returning home with 24 hour care. SW also spoke to Evelyn regarding the difference between jail care and extermination supervisor placement and hospice care. SW did inform Evelyn that appropriateness for hospice care would be determined by pt's physicians and SW is providing information for consideration if/when that time would be appropriate. At this time Evelyn feels best course of action is for pt to return to [facility]. Evelyn made aware that SW will remain available if further questions or needs arise. Phone call to Cleopatra at [facility] and updated on pt. Clinical updates faxed. Green sheet placed on pt chart in the event she is ready for discharge over the weekend. Pt will need negative covid test to return to [facility]. Plan: [facility], skilled level of care, when medically ready. BECKY Vanessa
--- NOTE | 2021-12-15 13:29 | PCM.PN.HOSP ---
Documented by User: Juan TATE 12/15/21 13:59 Subjective Subjective Patient is a 81-year-old female lying in bed, alert and oriented x3. Although patient is appropriately alert and oriented, she is slow to respond to questions when asked and is not at her baseline according to family. Does not appear in acute distress. Objective Data Objective Data Vital Signs: Vital Signs Temp Pulse Resp BP Pulse Ox 97.8 F 85 14 107/65 93 12/15/21 10:34 12/15/21 11:31 12/15/21 10:34 12/15/21 10:34 12/15/21 10:34 Oxygen Delivery Method Room Air Weight: 105 lb 6.095 oz Body Mass Index (BMI) 20.5 Intake & Output: Intake and Output for Last 24 Hours 12/13/21 12/14/21 12/15/21 23:59 23:59 23:59 Intake Total 1530 / 1550 1405.00 / 1405.00 Output Total 350 / 350 Balance 1530 / 1300 1055.00 / 1055.00 Lab / Micro Data Result Diagrams: 12/15/21 04:34 12/15/21 04:34 Labs: Laboratory Results - last 24 hr 12/14/21 18:00: WBC 15.8 H, RBC 2.75 L, Hgb 9.8 L, Hct 30.3 L, MCV 110.2 H, MCH 35.6 H, MCHC 32.3, RDW Std Deviation 66.7 H, RDW Coeff of Vin 16.6 H, Plt Count 281, MPV 10.6, Immature Gran % (Auto) 1.100 H, Neut % (Auto) 87.5 H, Lymph % (Auto) 2.9 L, [place] % (Auto) 8.4, Eos % (Auto) 0.0, Baso % (Auto) 0.1, Absolute Neuts (auto) 13.9 H, Absolute Lymphs (auto) 0.46 L, Nucleated RBC % 0, Differential Comment SEE COMMENT, Platelet Estimate ADEQUATE, RBC Morphology N CHROM, Anisocytosis 1+, Macrocytosis 1+ 12/14/21 18:00: PT 14.1, INR 1.2, APTT 29.4 12/14/21 18:00: Sodium 139, Potassium 3.7, Chloride 100, Carbon Dioxide 33.0 H, Anion Gap 6, BUN 71 H, Creatinine 0.69, Estim Creat Clear Calc 32.77, Est GFR (MDRD) Af Amer 105, Est GFR (MDRD) Non-Af 87, BUN/Creatinine Ratio 102.8 H, Glucose 152 H, Calcium 8.5, Total Bilirubin 0.30, AST 45 H, ALT 56, Alkaline Phosphatase 122 H, Total Protein 5.9 L, Albumin 1.8 L, Globulin 4.1, Albumin/Globulin Ratio 0.4 L 12/14/21 18:00: Lactic Acid 2.4 H* 12/14/21 18:40: Urine Color Yellow, Urine Clarity Clear, Urine pH 6.0, Ur Specific [place] 1.010, Urine Protein 30 H, Urine Glucose (UA) Normal, Urine Ketones Negative, Urine Occult Blood 50 H, Urine Nitrite Negative, Urine Bilirubin Negative, Urine Urobilinogen Normal, Ur Leukocyte Esterase 500 H, Urine RBC 0-5 SEEN, Urine WBC 5-10 SEEN, Ur Squamous Epith Cells 0-5 SEEN, Urine Bacteria RARE, Urine Mucus 0 SEEN 12/14/21 : Lactic Acid 1.4 12/15/21 04:34: WBC 13.1 H, RBC 2.41 L, Hgb 8.4 L, Hct 25.9 L, MCV 107.5 H, MCH 34.9 H, MCHC 32.4, RDW Std Deviation 64.5 H, RDW Coeff of Vin 16.4 H, Plt Count 241, MPV 10.7, Immature Gran % (Auto) 0.800, Neut % (Auto) 89.5 H, Lymph % (Auto) 2.6 L, [place] % (Auto) 7.0, Eos % (Auto) 0.0, Baso % (Auto) 0.1, Absolute Neuts (auto) 11.7 H, Absolute Lymphs (auto) 0.34 L, Nucleated RBC % 0, Differential Comment SCANNED, Platelet Estimate ADEQUATE, Hypochromasia 1+ 12/15/21 04:34: Sodium 140, Potassium 3.4 L, Chloride 103, Carbon Dioxide 32.0, Anion Gap 5, BUN 47 H, Creatinine 0.45 L, Estim Creat Clear Calc 32.77, Est GFR (MDRD) Af Amer 175, Est GFR (MDRD) Non-Af 144, BUN/Creatinine Ratio 105.4 H, Glucose 95, Calcium 8.5, Total Bilirubin 0.30, AST 34, ALT 39, Alkaline Phosphatase 104, Total Protein 5.2 L, Albumin 1.4 L, Globulin 3.8, Albumin/Globulin Ratio 0.4 L Radiography Diagnostic Testing: Radiology Impression Chest X-Ray 12/14/21 18:07 IMPRESSION: There is a right pleural effusion. Right lower lobe infiltrate Electronically Signed: Roger Oliver MD at 18:27 EST , Physical Exam Const alert, oriented x3 and no apparent distress Orientation / Consciousness: lethargic HEENT head/scalp atraumatic and moist oral mucous membranes Head and Scalp: normocephalic Eyes PERRL and conjunctivae normal Neck no lymphadenopathy, supple and no JVD Resp normal respiratory effort, no retractions and no use of accessory muscles Auscultation: diminished lung sounds Cardio regular rate, regular rhythm and no JVD GI normal to inspection, nondistended, normoactive bowel sounds Extremity normal to inspection Skin no rashes or lesions noted Neuro CN's II-XII intact bilaterally Psych affect normal Assessment & Plan Assessment/Plan (1) Lactic acidosis: (2) Sepsis: (3) Confusion: (4) Pneumonia: QUALIFIERS: Laterality: right Lung location: lower lobe of lung Pneumonia type: due to unspecified organism Qualified Code(s): J18.9 - Pneumonia, unspecified organism PLAN: Day 1 Discharge planning: To be determined. 1) community-acquired pneumonia versus aspiration pneumonia Patient no longer meets criteria for sepsis as elevated heart rate and lactate have resolved. WBC still elevated at 13.1, although improved from admission. Chest x-ray on admission demonstrated right lower lobe infiltrate with right sided pleural effusion. There is a concern for aspiration pneumonia given metastatic esophageal cancer with history of chronic dysphagia urine and blood cultures pending. 2) coccygeal and mid posterior thorax decubitus ulcers Wound nurse consulted. 3) chronic macrocytic anemia Hemoglobin is 8.4, baseline appears between 9 and 10. No evidence of bleed or hemodynamic instability. We will continue to trend. 4) Metastatic esophageal CA, s/p esophageal stent Follows with Dr. Silverio and Dr. Masci as an outpateint. Speech therapy consult ordered, will continue tube feeds. 5) hypokalemia Potassium currently 3.4, replaced, continue to monitor BMP. 6) recent fall with pelvic fracture and hematoma Patient was treated at [facility] on 12/02/2021 and was discharged to the [facility] transitional care unit. PT/OT ordered, as needed Tylenol ordered. 7) malnutrition in the setting of metastic esophageal CA Patient's BMI is 20.5, nutrition consult ordered. 8) HTN/HLD Continue statin and carvedilol. DVT prophylaxis - Heparin Patient seen by Juan Tang PA-C, under the supervision of Dr. Ryan. Time spent on patient care: 10 minutes. Documented by User: Dr. Dean Ryan, 12/15/21 14:15 Subjective Subjective denies complaints Objective Data Lab / Micro Data Result Diagrams: 12/15/21 04:34 12/15/21 04:34 Physical Exam Const alert and no apparent distress Resp normal respiratory effort, no retractions, no use of accessory muscles and clear to auscultation bilaterally Cardio regular rate, regular rhythm, S1 normal heart sound and S2 normal heart sound GI normal to inspection, nondistended, normoactive bowel sounds, soft to palpation, non-tender and non-distended Extremity normal to inspection Assessment & Plan Assessment/Plan (1) Confusion: PLAN: Patient seen and examined independently. Data and vitals reviewed. 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 1. Encephalopathy Resolved likely metabolic Head CT imaging showed no acute process. Plan: Avoid potentiating medications 2. Leukocytosis Unclear if there is underlying infection Patient being treated for aspiration pneumonia with levofloxacin doxycycline and metronidazole Chest x-ray reviewed and shows pronounced scoliosis to the right but it could just be malpositioning. Possible right lower lobe infiltrate. Continue with antibiotics for now but if culture results come back negative may consider discontinuing antibiotics altogether. qSOFA score of 1 therefore sepsis and severe sepsis ruled out. 3. Esophageal cancer Status post esophageal stent and PEG tube Patient states that she was not tolerating chemotherapy and was subsequent discontinued. Request records from Dr. Martínez's office Greater than 25 minutes of which greater than 50% of time was counseling patient at bedside about treatment but also getting history in regards to her cancer. Charges/Coding Visit Charges Inpatient E&M: 26664 Init Hosp L3
--- NOTE | 2021-12-15 13:47 | SP.MBSS_ITS ---
Modified Barium Swallow - Patient Information Study Date: 12/15/21 Study Time: 13:45 Direct Billable Minutes: 90 Total Minutes procedure & reportin Diagnosis: Severe malnutrition (E43), Pneumonia (J18.9) Referring Physician: Dean Ryan Reason for Referral: Objectively assess swallow function and aspiration risk. Medical History: The patient is a 81 F who presented to [facility] ED 12/14/2021 with abnormal bloodwork. Patient recently had a fall and sustained pelvic fracture with hematoma 2 weeks ago. [facility] She subsequently was discharged to TCU in [facility]. Patient has history of metastatic esophageal CA had gone for her routine follow-up with [facility] oncology. She was found to be hypoactive to previous baseline prior to her fall 2 weeks. Patient's blood work in the office showed WBC count of 15.8. Her blood pressure was relatively low also in the oncologist office. Her oncologist was concerned about possible sepsis. Chest x-ray shows a right pleural effusion with a right lower lobe infiltrate. The patient has been admitted for management of pneumonia. Pt referred for speech consult for concerns for aspiration. She was evaluated at bedside. 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 She does still consume liquids orally, especially preferred liquids such as apple juice. During BSE on 12/15/2021, the patient demonstrated coughing episodes with consumption of thin liquids via cup and straw. She was recommended NPO (Ok for supervised ice chips) and referred for MBS study to assess aspiration risk with consumption of liquids. Medical History Decubitus ulcer of right buttock, stage 3 Esophageal cancer Essential (primary) hypertension HLD (hyperlipidemia) Hypokalemia Hyponatremia Non-ST elevation myocardial infarction (NSTEMI), type 2 (06/11/16) Physical debility Takotsubo cardiomyopathy transient hypoxia Current Diet Ordered: NPO with PEG Dentition: Missing Teeth Mental Status: WNL Respiratory Status: Oxygenating on Room Air - Penetration-Aspiration Scale Penetration-Aspiration Scale: OBJECTIVE ASSESSMENT OF SWALLOW FUNCTION (QUANTITATIVE ? PER TRIAL): PENETRATION / ASPIRATION SCALE (MARLOW): 1 = does not enter airway 2 = enters airway/above vocal folds/ejected 3 = enters airway/above vocal folds/not ejected 4 = enters airway/contacts vocal folds/ejected 5 = enters airway/contacts vocal folds/not ejected 6 = enters airway/below vocal folds/ejected 7 = enters airway/below vocal folds/not ejected despite effort 8 = enters airway/below vocal folds/no effort VIDEOFLOROSCOPIC SCALE SCORE (MARLOW): Grade I = aspiration of material that has penetrated into the laryngeal vestibule, intact cough reflex Grade II = aspiration < 10 % of the bolus, intact cough reflex Grade III = aspiration of < 10 % of the bolus, reduced cough reflex or aspiration of > 10 % of the bolus, intact cough reflex Grade IV = aspiration of > 10 % of the bolus, reduced cough reflex - Penetration-Aspiration Scale Score Thin Liquid via teaspoon Result: 1= does not enter airway Comment: Independent use of double swallow. Thin Liquid via teaspoon Double swallow Result: 1= does not enter airway Thin Liquid via small single sip from cup Result: 3= enters airways/above vocal folds/not ejected Comment: Independent use of double swallow. Thin Liquid via small single sip from cup Double swallow Result: 3= enters airways/above vocal folds/not ejected [place] Thick Liquid via small single sip from cup Double swallow Result: 3= enters airways/above vocal folds/not ejected Honey Thick Liquid via small single sip from cup Result: 1= does not enter airway Comment: Independent use of double swallow. Thin Liquid via teaspoon Trial 2 Result: 4= enters airway/contacts vocal folds/ejected Comment: Independent use of double swallow. Thin Liquid via teaspoon Effortful swallow Result: 3= enters airways/above vocal folds/not ejected [place] Thick Liquid via teaspoon Result: 1= does not enter airway [place] Thick Liquid via teaspoon Trial 2 Result: 3= enters airways/above vocal folds/not ejected Thin Liquid via single sip from straw Result: 5= enters airways/contacts vocal folds/not ejected Thin Liquid via 1/2 teaspoon Effortful swallow Result: 5= enters airways/contacts vocal folds/not ejected - Oral Phase Labial Seal: No Labial Escape Tongue Control During Bolus Hold: Posterior escape of less than half of bolus Bolus Transport/Lingual Motion: Slowed tongue motion Oral Residue: Residue collection on oral structures - Pharyngeal Phase Initiation of Pharyngeal Swallow: Bolus head in pyriforms Soft Palate Elevation: Trace column of contrast/air between soft palate and pharyngeal wall Laryngeal Elevation: Partial superior movement thyroid cart/partial apprx aryt- epig petiole Anterior Hyoid Excursion: Partial anterior movement Epiglottic Movement: Complete inversion Laryngeal Vestibule Closure at Height of Swallow: Incomplete; narrow column of air/contrast in laryngeal vestibule Pharyngeal Stripping Wave: Present - diminished Pharyngoesophageal Segment Opening: Parital distension and partial duration; parital obstruction of flow Tongue Base Retraction: Wide column of contrast between tongue base & post. pharyngeal wall Pharyngeal Residue: Majority of contrast within or on pharyngeal structures - Treatment Strategies Effects of treatment strategies attemped:: Cough and reswallow = somewhat effective. Double swallow = somewhat effective. Hard swallow = not effective. Decreased bolus rate = effective. - Diagnosis/Impression Diagnosis: Moderate oropharyngeal phase dysphagia (R13.12) Impression: The oral phase is primarily marked by deficits in bolus control resulting in premature spillage of liquid trials to the pyriforms. Premature posterior spillage results in suboptimal bolus placement upon swallow onset. The pharyngeal phase of the swallow is marked by decreased airway closure and moderate pharyngeal residue resulting in increased risk for aspiration both during and after the swallow. The patient has decreased laryngeal elevation and anterior hyoid excursion with resulting impairment in closure of the laryngeal vestibule during the swallow. She has moderate pharyngeal residues in the vallecula and pyriforms due to decreased tongue base retraction, pharyngeal contraction, and UES opening. The patient demonstrated penetration of thin and nectar thick trials into the laryngeal vestibule. Thin liquid trials penetrated to the vocal folds without full ejection from the laryngeal vestibule, increasing patient's risk to aspiration contrast remaining in the vestibule after the swallow. The patient d emonstrated moderate pharyngeal residue of honey thickened liquids with approximately 1/2 of the bolus in the vallecula after the swallow, increasing her risk for aspiration after the swallow. - Recommendations Diet: [place]-thick Liquids Comment: Continue all nutrition via PEG tube. Pt is ok for tsp sips of nectar thickened liquids with use of double swallow. Consider cough and reswallow if wet vocal quality. Compensatory Strategies: Liquid by Teaspoon Only, Slow Rate, Multiple Swallows, Sitting upright, Remain sitting upright for 30 minutes after PO intake Supervision: 1:1 Close Supervision Recommend Repeat Modified Barium Swallow: Yes - 2-4 weeks after implementation of oropharyngeal strengthening. Need for Skilled Speech Therapy Services: Yes Comment: Will recommend the patient for skilled dysphagia therapy to address deficits in oropharyngeal swallow function. Would consider the patient for oropharyngeal strengthening to improve laryngeal elevation, hyoid excursion, tongue base retraction, and duration of UES opening. The patient would benefit from thorough education regarding diet recommendations and recommended compensatory strategies. Would consider the patient for implementation of [place] Free Water Protocol (FFWP) to encourage hydration and promote increased opportunities for swallowing throughout the patient?s day. Education Completed: 1. Described result of evaluation., 4. Family/caregivers understand evaluation & agree w/ goals & tx plan., 7. Pt requires further education on strategies & risks. - Status Active ST Patient: Active - Contact Information [facility] Speech Therapy:: Geraldine Hummel M.A. [facility]-EMPLOYEE SERVICES MANAGER Speech-Language Pathologist [facility] [address] [place] [address] [email or web address] [phone] 12/15/21 15:07
[2021-12-15] MEDS: Jevity 1.5 1,000 ML 45 ML GT (15:01)
[2021-12-15] MEDS: Tobram/Dexam 2.5ML OPTH.BTL 1 DRP LEFT EYE ×3 (15:01→21:38)
[2021-12-15] MEDS: 0.9% Normal Saline 1,000 ML 100 ML IV (15:10)
--- NOTE | 2021-12-15 17:22 | PN.PALL_ITS ---
Subjective Subjective PAMELA HOLM, is a 81 F is a current Palliative patient who presented to the ER from Dr. Martínez's office due to hypotensive with elevated WBC due to concern of sepsis. She was admitted to Palliative care by Danay Means CNP in 10/17 in her home and has been managing symptoms of depression, anxiety and pain. Patient recently had a fall and sustained pelvic fracture with hematoma 2 weeks ago. She was seen in [facility]. She subsequently was discharged to TCU in [facility]. Patient has history of metastatic esophageal CA had gone for her routine follow-up with [facility] oncology. She was found to be hypotensive to previous baseline prior to her fall 2 weeks. Patient's blood work in the office showed WBC count of 15.8. Her blood pressure was relatively low also in the oncologist office. Her oncologist was concerned about possible sepsis. In the emergency room, her vitals show temperature of 98.9F, blood pressure 104/67, heart rate 90, respiratory rate 17, SPO2 is 94% on room air. Admitting blood work showed WBC count of 15.8 left shift, hemoglobin is 9.8, platelet count 281, INR 1.2, CMP was significant for BUN of 71, creatinine 0.69. Lactic acid was 2.4. UA was clear, esterase 500, WBC count 5- 10, rare bacteria. Chest x-ray shows a right pleural effusion with a right lower lobe infiltrate. On IV Levaquin, doxycycline and metronidazole. Barium swallow today. Continue all nutrition via PEG tube. Pt is ok for tsp sips of nectar thickened liquids with use of double swallow. Consider cough and re-swallow if wet vocal quality. Compensatory Strategies: Liquid by Teaspoon Only, Slow Rate, Multiple Swallows, Sitting upright, Remain sitting upright for 30 minutes after PO intake. Seen in her room sitting upright with IV fluids infusing. Alert, pleasant but noted to be tense. Denies any pain or distress. trying to take a nap. All questions answered with a yes or no. Daughter had stepped out to let her take a nap following her Barium swallow. Objective Data Objective Data Vital Signs: Vital Signs Temp Pulse Resp BP Pulse Ox 97.8 F 85 14 107/65 93 12/15/21 10:34 12/15/21 11:31 12/15/21 10:34 12/15/21 10:34 12/15/21 10:34 Oxygen Delivery Method Room Air Weight: 47.8 kg Body Mass Index (BMI) 20.5 Intake & Output: Intake and Output for Last 24 Hours 12/13/21 12/14/21 12/15/21 23:59 23:59 23:59 Intake Total 1530 / 1550 1680.00 / 1680.00 Output Total 350 / 350 Balance 1530 / 1300 1330.00 / 1330.00 Lab / Micro Data Result Diagrams: 12/15/21 04:34 12/15/21 04:34 Labs: Laboratory Results - last 24 hr 12/14/21 18:00: WBC 15.8 H, RBC 2.75 L, Hgb 9.8 L, Hct 30.3 L, MCV 110.2 H, MCH 35.6 H, MCHC 32.3, RDW Std Deviation 66.7 H, RDW Coeff of Vin 16.6 H, Plt Count 281, MPV 10.6, Immature Gran % (Auto) 1.100 H, Neut % (Auto) 87.5 H, Lymph % (Auto) 2.9 L, [place] % (Auto) 8.4, Eos % (Auto) 0.0, Baso % (Auto) 0.1, Absolute Neuts (auto) 13.9 H, Absolute Lymphs (auto) 0.46 L, Nucleated RBC % 0, Differential Comment SEE COMMENT, Platelet Estimate ADEQUATE, RBC Morphology N CHROM, Anisocytosis 1+, Macrocytosis 1+ 12/14/21 18:00: PT 14.1, INR 1.2, APTT 29.4 12/14/21 18:00: Sodium 139, Potassium 3.7, Chloride 100, Carbon Dioxide 33.0 H, Anion Gap 6, BUN 71 H, Creatinine 0.69, Estim Creat Clear Calc 32.77, Est GFR (MDRD) Af Amer 105, Est GFR (MDRD) Non-Af 87, BUN/Creatinine Ratio 102.8 H, Glucose 152 H, Calcium 8.5, Total Bilirubin 0.30, AST 45 H, ALT 56, Alkaline Phosphatase 122 H, Total Protein 5.9 L, Albumin 1.8 L, Globulin 4.1, Albumin/Globulin Ratio 0.4 L 12/14/21 18:00: Lactic Acid 2.4 H* 12/14/21 18:40: Urine Color Yellow, Urine Clarity Clear, Urine pH 6.0, Ur Specific [place] 1.010, Urine Protein 30 H, Urine Glucose (UA) Normal, Urine Ketones Negative, Urine Occult Blood 50 H, Urine Nitrite Negative, Urine Bilirubin Negative, Urine Urobilinogen Normal, Ur Leukocyte Esterase 500 H, Urine RBC 0-5 SEEN, Urine WBC 5-10 SEEN, Ur Squamous Epith Cells 0-5 SEEN, Urine Bacteria RARE, Urine Mucus 0 SEEN 12/14/21 : Lactic Acid 1.4 12/15/21 04:34: WBC 13.1 H, RBC 2.41 L, Hgb 8.4 L, Hct 25.9 L, MCV 107.5 H, MCH 34.9 H, MCHC 32.4, RDW Std Deviation 64.5 H, RDW Coeff of Vin 16.4 H, Plt Count 241, MPV 10.7, Immature Gran % (Auto) 0.800, Neut % (Auto) 89.5 H, Lymph % (Auto) 2.6 L, [place] % (Auto) 7.0, Eos % (Auto) 0.0, Baso % (Auto) 0.1, Absolute Neuts (auto) 11.7 H, Absolute Lymphs (auto) 0.34 L, Nucleated RBC % 0, Differential Comment SCANNED, Platelet Estimate ADEQUATE, Hypochromasia 1+ 12/15/21 04:34: Sodium 140, Potassium 3.4 L, Chloride 103, Carbon Dioxide 32.0, Anion Gap 5, BUN 47 H, Creatinine 0.45 L, Estim Creat Clear Calc 32.77, Est GFR (MDRD) Af Amer 175, Est GFR (MDRD) Non-Af 144, BUN/Creatinine Ratio 105.4 H, Glucose 95, Calcium 8.5, Total Bilirubin 0.30, AST 34, ALT 39, Alkaline Phosphatase 104, Total Protein 5.2 L, Albumin 1.4 L, Globulin 3.8, Albumin/Globulin Ratio 0.4 L Radiography Diagnostic Testing: Radiology Impression Chest X-Ray 12/14/21 18:07 IMPRESSION: There is a right pleural effusion. Right lower lobe infiltrate Electronically Signed: Roger Oliver MD at 18:27 EST , Physical Exam Const alert General Appearance: cooperative, ill appearing and frail Nutritional Appearance: cachectic HEENT normocephalic and head/scalp atraumatic Eyes EOMs intact bilaterally and conjunctivae normal General Eye: normal appearance of both eyes Resp normal respiratory effort, normal air movement, no use of accessory muscles and clear to auscultation bilaterally Cardio regular rate and regular rhythm GI normal to inspection, nondistended, normoactive bowel sounds Extremity normal to inspection and no clubbing, cyanosis or edema Assessment & Plan Assessment/Plan (1) Pneumonia: QUALIFIERS: Laterality: right Lung location: lower lobe of lung Pneumonia type: due to unspecified organism Qualified Code(s): J18.9 - Pneumonia, unspecified organism (2) Physical debility: (3) Esophageal cancer: (4) Decubitus ulcer of right buttock, stage 3: (5) Confusion: (6) Sepsis: (7) Lactic acidosis: (8) Severe malnutrition: PLAN: PAMELA HOLM, is a 81 F is a current Palliative patient who presented to the ER from Dr. Martínez's office due to hypotensive with elevated WBC due to c oncern of sepsis. Patient has been at [facility] and plan is to return. Plan is as follows: 1) Debility/ weakness: PT/OT but patient is weak. Not sure if she will be able to progress. She is appropriate for hospice if no longer pursuing cancer treatments. According to documentation, daughter is tearful and not ready for hospice discussion. Unable to contact daughter today at or after visit. Palliative office to call and follow up on Saturday. 2) Lower lobe pneumonia/ dysphagia: Follow ST guidelines for fluids to avoid further aspiration. [place] thickened fluids. Follow up with Danay Means CNP on January 07 at 4pm as scheduled. 3) Wound care/malnutrition: Wound care to follow for managment. Thank you for the opportunity to participate in this patient's care, please do not hesitate to contact [facility] with any further questions or concerns. Palliative direct line is [phone]. Was unable to catch up with daughter before or after the visit. Palliative office to reach out Saturday and provide support of recent hospitalizations Start time: 3:00 PM End time: 3:15 PM
[2021-12-15] MEDS: Juven (unflavored) Packet 1 PACKET PO (18:01)
[2021-12-16] VITALS (10 sets, daily range): BP systolic 95–119; BP diastolic 57–82; PULSE 92–112; RESP 12–18; TEMP 36.4–36.7; O2SAT 91–95
[2021-12-16] MEDS: Heparin Injection (Vial) 5,000 UNIT/ML VIAL 5000 UNIT SC ×3 (05:45→22:03)
[2021-12-16] MEDS: metroNIDAZOLE 500 MG/100 ML BAG 100 MG IV (05:45)
[2021-12-16 07:19] LABS: Absolute Lymphocyte Count 0.46 X10^3/uL (0.83-4.51); Absolute Neutrophil Count 7.9 X10^3/uL (2.0-7.7); Basophil# 0.01 X10^3/uL; Basophil% 0.1 % (0-1); Eosinophil# 0.02 X10^3/uL; Eosinophils% 0.2 % (0-5); Hematocrit 24.3 % (37-47); Hemoglobin 8.1 g/dL (12.0-15.0); Lymphocyte # 0.46 X10^3/ul (0.83-4.51); Mean Corp Hgb Conc 33.3 g/dL (32-36); Mean Corpuscular Hgb 35.7 pg (27.0-32.0); Mean Platelet Vol. 10.4 fl (6.2-12.0); Monocyte# 0.74 X10^3/uL; Monocyte% 8.1 % (0-10); NRBC Flagged by Analyzer 0 % (0-5); Neutrophil # 7.85 X10^3/uL (2.7-7.7); Neutrophil % 85.8 % (47-70); POSITIVE DIFFERENTIAL YES; Platelet Count 256 K/mm3 (150-450); RBC Distribution Width CV 16.3 % (11.6-14.6); RBC Distribution Width SD 63.3 fl (35.1-43.9); Red Blood Count 2.27 M/mm3 (4.2-5.4); White Blood Count 9.2 K/mm3 (4.4-11.0)
[2021-12-16 07:21] LABS: Differential Indicated SCAN CRITERIA MET
[2021-12-16 07:52] LABS: Anion Gap 3 (5-15); BUN 42 mg/dL (7-18); Calcium,Total 7.8 mg/dL (8.5-10.1); Chloride 103 mmol/L (98-107); Creatinine, Serum 0.48 mg/dL (0.55-1.02); EST Glomerular Filtration Rate 132 mL/min (>60); Est Glom Filt Rate - Afr Amer 159 mL/min (>60); Estimated Creatinine Clearance 32.77 ml/min; Glucose 147 mg/dL (74-106); Potassium 3.7 mmol/L (3.5-5.1); Sodium Level 137 mmol/L (136-145)
[2021-12-16 08:40] LABS: Differential Comment SCANNED
[2021-12-16] MEDS: Juven (unflavored) Packet 1 PACKET PO ×2 (10:11→17:07)
[2021-12-16] MEDS: Tobram/Dexam 2.5ML OPTH.BTL 1 DRP LEFT EYE ×4 (10:11→22:04)
--- NOTE | 2021-12-16 11:35 | PN.HOSP_ITS ---
Documented by User: Juan TATE 12/16/21 11:52 Subjective Subjective Patient is a 81-year-old female lying in bed, alert and orient x3. Although patient is appropriately alert and oriented she is still very slow to respond to questions when asked and does not seem at baseline level of mentation. Does not appear in acute distress. Objective Data Objective Data Vital Signs: Vital Signs Temp Pulse Resp BP Pulse Ox 97.5 F L 95 16 119/68 92 12/16/21 10:10 12/16/21 10:10 12/16/21 10:10 12/16/21 10:10 12/16/21 10:10 Oxygen Delivery Method Room Air Weight: 117 lb 4.575 oz Body Mass Index (BMI) 20.5 Intake & Output: Intake and Output for Last 24 Hours 12/14/21 12/15/21 12/16/21 23:59 23:59 23:59 Intake Total 1530 / 1550 2610.00 / 3303.00 2546 / 2546 Output Total 800 / 1050 250 / 250 Balance 1530 / 1300 1810.00 / 2253.00 2296 / 2296 Lab / Micro Data Result Diagrams: 12/16/21 06:23 12/16/21 06:23 Labs: Laboratory Results - last 24 hr 12/16/21 06:23: WBC 9.2, RBC 2.27 L, Hgb 8.1 L, Hct 24.3 L, MCV 107.0 H, MCH 35.7 H, MCHC 33.3, RDW Std Deviation 63.3 H, RDW Coeff of Vin 16.3 H, Plt Count 256, MPV 10.4, Immature Gran % (Auto) 0.800, Neut % (Auto) 85.8 H, Lymph % (Auto) 5.0 L, [place] % (Auto) 8.1, Eos % (Auto) 0.2, Baso % (Auto) 0.1, Absolute Neuts (auto) 7.9 H, Absolute Lymphs (auto) 0.46 L, Nucleated RBC % 0, Differential Comment SCANNED 12/16/21 06:23: Sodium 137, Potassium 3.7, Chloride 103, Carbon Dioxide 31.0, Anion Gap 3 L, BUN 42 H, Creatinine 0.48 L, Estim Creat Clear Calc 32.77, Est GFR (MDRD) Af Amer 159, Est GFR (MDRD) Non-Af 132, BUN/Creatinine Ratio 87.0 H, Glucose 147 H, Calcium 7.8 L Micro: Microbiology 12/14/21 17:45 Blood Culture (Wb) - No Site/Description Given Bacteria Detection (PCR) - Final Staphylococcus epidermidis 12/14/21 17:45 Blood Culture (Wb) - No Site/Description Given Blood Culture - Preliminary 12/14/21 18:40 Urine Catheter - Catheter Urine Culture - Preliminary Alpha Hemolytic Streptococcus 12/15/21 18:25 Urine Catheter - [place] Legionella Antigen - Final 12/15/21 18:25 Urine Catheter - [place] Streptococcus pneumoniae Antigen (M - Final Physical Exam Const alert and oriented x3 Orientation / Consciousness: lethargic HEENT head/scalp atraumatic and moist oral mucous membranes Head and Scalp: normocephalic Eyes PERRL and conjunctivae normal Neck no lymphadenopathy, supple and no JVD Resp normal respiratory effort, no retractions and no use of accessory muscles Cardio regular rate, regular rhythm and no JVD GI normal to inspection, nondistended, normoactive bowel sounds Extremity normal to inspection Skin no rashes or lesions noted Neuro Neuro Narrative: Unable to assess. Psych Psych Narrative: Unable to assess. Assessment & Plan Assessment/Plan (1) Lactic acidosis: (2) Severe malnutrition: (3) Confusion: (4) Pneumonia: QUALIFIERS: Laterality: right Lung location: lower lobe of lung Pneumonia type: due to unspecified organism Qualified Code(s): J18.9 - Pneumonia, unspecified organism PLAN: Day 2 Discharge planning: To be determined. Patient is hospice appropriate but family is not ready for patient to be moved to hospice at this time. Palliative care will follow. 1) Encephalopathy Patient is appropriately alert and oriented, but is very slow to respond to questions when asked and does appear somewhat lethargic. Likely metabolic encephalopathy related to #2. CT of the head did not show any acute intracranial abnormality. Plan is as below, will avoid any sedating medications. 2) Leukocytosis WBC improved, curently 9.2. Chest x-ray on admission demonstrated right lower lobe infiltrate with right sided pleural effusion. There is a concern for aspiration pneumonia given metastatic esophageal cancer with history of chronic dysphagia urine and blood cultures pending. 1 of 2 blood cultures did grow Staph epidermidis, possibly contaminant, will await following culture. Continue levofloxacin, doxycycline and Flagyl. 3) chronic macrocytic anemia Hemoglobin is 8.1, baseline appears between 9 and 10. No evidence of bleed or hemodynamic instability. We will continue to trend, transfuse if hemoglobin falls below 7. 4) Metastatic esophageal CA, s/p esophageal stent Follows with Dr. Silverio and Dr. Martínez as an outpateint. Speech therapy consult ordered, will continue tube feeds. 5) hypokalemia Resolved, potassium currently 3.7. 6) recent fall with pelvic fracture and hematoma Patient was treated at [facility] on 12/02/2021 and was discharged to the [facility] transitional care unit. PT/OT ordered, as needed Tylenol ordered. 7) malnutrition in the setting of metastic esophageal CA Patient's BMI is 20.5, nutrition consult ordered. 8) HTN/HLD Continue statin and carvedilol. DVT prophylaxis - Heparin Patient seen by Juan Tang PA-C, under the supervision of Dr. Ryan. Time spent on patient care: 9 minutes. Documented by User: Dr. Dean Ryan, 12/16/21 12:58 Subjective Subjective Confused. Objective Data Lab / Micro Data Result Diagrams: 12/16/21 06:23 12/16/21 06:23 Physical Exam Const Constitutional Narrative: awake. nontoxic. Orientation / Consciousness: confused Resp normal respiratory effort, no retractions, no use of accessory muscles and clear to auscultation bilaterally Cardio regular rate, regular rhythm, S1 normal heart sound and S2 normal heart sound GI normal to inspection, nondistended, normoactive bowel sounds, soft to palpation, non-tender and non-distended Extremity normal to inspection Assessment & Plan Assessment/Plan (1) Confusion: (2) Esophageal cancer: PLAN: Patient seen and examined independently. Data and vitals reviewed. I agree with the above note by the physician programs assistant. 1. Encephalopathy ongoing likely metabolic Head CT imaging showed no acute process. Plan: Avoid potentiating medications 2. UTI Alphahemolytic strep Continue with vancomycin for now qSOFA score of 1 therefore sepsis and severe sepsis ruled out. Bacteremia likely contaminant as only 1 of 2 were positive for staph epidermidis 3. Esophageal cancer Status post esophageal stent and PEG tube Patient states that she was not tolerating chemotherapy and was subsequent discontinued. Discussed with Dr. Martínez, chemotherapy discontinued as patient was not tolerating that. 4. Debility: Plan is for [facility] on the . Greater than 20 minutes of which greater 50% than for present time was discussed with the patient at bedside and evaluating patient. Charges/Coding Visit Charges Inpatient E&M: 07112 Subs Hosp L2
[2021-12-16] MEDS: Jevity 1.5 1,000 ML 45 ML GT (14:59)
--- NOTE | 2021-12-16 17:03 | PCM.RX.CS ---
Consult Pharmacy has been consulted to manage selected antiobiotic: Vancomycin Type of Consult: New start Suspected Infection: Pneumonia Prior Doses of Antibiotics Received/Current Regimen: Given loading dose of 1250mg iv x 1 on 12.16.21. Labs: Sodium 137 mmol/L (136-145) 12/16/21 06:23 Potassium 3.7 mmol/L (3.5-5.1) 12/16/21 06:23 Chloride 103 mmol/L (98-107) 12/16/21 06:23 Carbon Dioxide 31.0 mmol/L (21.0-32.0) 12/16/21 06:23 Anion Gap 3 (5-15) L 12/16/21 06:23 BUN 42 mg/dL (7-18) H 12/16/21 06:23 Creatinine 0.48 mg/dL (0.55-1.02) L 12/16/21 06:23 Est GFR (MDRD) Af Amer 159 mL/min (>60) 12/16/21 06:23 Est GFR (MDRD) Non-Af 132 mL/min (>60) 12/16/21 06:23 BUN/Creatinine Ratio 87.0 RATIO (10-20) H 12/16/21 06:23 Glucose 147 mg/dL (74-106) H 12/16/21 06:23 Microbiology: Microbiology 12/14/21 17:45 Blood Culture (Wb) - No Site/Description Given Bacteria Detection (PCR) - Final Staphylococcus epidermidis 12/14/21 17:45 Blood Culture (Wb) - No Site/Description Given Blood Culture - Preliminary 12/14/21 18:40 Urine Catheter - Catheter Urine Culture - Preliminary Alpha Hemolytic Streptococcus 12/15/21 18:25 Urine Catheter - [place] Legionella Antigen - Final 12/15/21 18:25 Urine Catheter - [place] Streptococcus pneumoniae Antigen (M - Final Weight used for dosin.2 kg Estimated Creatinine Clearance: ~48 ml/min Goal Trough: 15-20 mcg/mL Pharmacy Plan for Drug Dosing: Renal function of CrCl calculated to be ~48ml/min for given height,Cr and age. Will begin 1gm dose q24h and get a trough level before 3rd total dose on 12.18.21. Pharmacy Service will continue to monitor and adjust dosing as required. Follow-Up Labs: Trough Vancomycin - 12.18.21 @1330 before 1400 dose
[2021-12-17] VITALS (7 sets, daily range): BP systolic 114–127; BP diastolic 68–88; PULSE 97–109; RESP 16–18; TEMP 36.4–37.3; O2SAT 93–96
[2021-12-17] MEDS: Heparin Injection (Vial) 5,000 UNIT/ML VIAL 5000 UNIT SC ×3 (06:49→22:21)
[2021-12-17 06:53] LABS: Absolute Lymphocyte Count 0.59 X10^3/uL (0.83-4.51); Absolute Neutrophil Count 9.9 X10^3/uL (2.0-7.7); Basophil# 0.01 X10^3/uL; Basophil% 0.1 % (0-1); Eosinophil# 0.03 X10^3/uL; Eosinophils% 0.3 % (0-5); Hematocrit 23.9 % (37-47); Hemoglobin 8.4 g/dL (12.0-15.0); Lymphocyte # 0.59 X10^3/ul (0.83-4.51); Lymphocyte % 5.2 % (19-41); Mean Corp Hgb Conc 35.1 g/dL (32-36); Mean Corpuscular Hgb 35.7 pg (27.0-32.0); Mean Corpuscular Volume 101.7 fL (81-99); Mean Platelet Vol. 10.5 fl (6.2-12.0); Monocyte# 0.79 X10^3/uL; Monocyte% 6.9 % (0-10); NRBC Flagged by Analyzer 0 % (0-5); Neutrophil # 9.93 X10^3/uL (2.7-7.7); Neutrophil % 86.6 % (47-70); POSITIVE DIFFERENTIAL YES; Platelet Count 282 K/mm3 (150-450); RBC Distribution Width CV 16.2 % (11.6-14.6); RBC Distribution Width SD 59.4 fl (35.1-43.9); Red Blood Count 2.35 M/mm3 (4.2-5.4); White Blood Count 11.5 K/mm3 (4.4-11.0)
[2021-12-17 06:58] LABS: Differential Indicated SCAN CRITERIA MET
[2021-12-17 07:42] LABS: Anion Gap 5 (5-15); BUN 38 mg/dL (7-18); BUN/Creat Ratio 87.2 RATIO (10-20); Calcium,Total 7.8 mg/dL (8.5-10.1); Chloride 105 mmol/L (98-107); Creatinine, Serum 0.44 mg/dL (0.55-1.02); EST Glomerular Filtration Rate 148 mL/min (>60); Est Glom Filt Rate - Afr Amer 179 mL/min (>60); Estimated Creatinine Clearance 32.77 ml/min; Glucose 152 mg/dL (74-106); Potassium 3.6 mmol/L (3.5-5.1); Sodium Level 137 mmol/L (136-145)
[2021-12-17 08:50] LABS: Differential Comment SCANNED
[2021-12-17] MEDS: Acetaminophen 650 MG/20 ML UDC GT (09:00)
[2021-12-17] MEDS: Tobram/Dexam 2.5ML OPTH.BTL 1 DRP LEFT EYE ×4 (09:00→22:21)
[2021-12-17] MEDS: Juven (unflavored) Packet 1 PACKET PO ×2 (09:00→17:52)
--- NOTE | 2021-12-17 10:34 | PN.HOSP_ITS ---
Documented by User: Juan TATE 12/17/21 10:44 Subjective Subjective Patient is a 81-year-old female lying in bed, alert and orient x3. Patient a little more reactive to questions when asked on my evaluation, although still lethargic and somnolent. Does not appear in acute distress. Objective Data Objective Data Vital Signs: Vital Signs Temp Pulse Resp BP Pulse Ox 99.1 F 101 H 16 116/82 H 93 12/17/21 09:00 12/17/21 09:00 12/17/21 09:00 12/17/21 09:00 12/17/21 09:00 Oxygen Delivery Method Room Air Weight: 118 lb 6.212 oz Body Mass Index (BMI) 20.5 Intake & Output: Intake and Output for Last 24 Hours 12/15/21 12/16/21 12/17/21 23:59 23:59 23:59 Intake Total 2610.00 / 3303.00 4267 / 4267 1251 / 1251 Output Total 800 / 1050 900 / 1200 800 / 800 Balance 1810.00 / 2253.00 3367 / 3067 451 / 451 Lab / Micro Data Result Diagrams: 12/17/21 05:55 12/17/21 05:55 Labs: Laboratory Results - last 24 hr 12/17/21 05:55: WBC 11.5 H, RBC 2.35 L, Hgb 8.4 L, Hct 23.9 L, MCV 101.7 H, MCH 35.7 H, MCHC 35.1 D, RDW Std Deviation 59.4 H, RDW Coeff of Vin 16.2 H, Plt Count 282, MPV 10.5, Immature Gran % (Auto) 0.900, Neut % (Auto) 86.6 H, Lymph % (Auto) 5.2 L, [place] % (Auto) 6.9, Eos % (Auto) 0.3, Baso % (Auto) 0.1, Absolute Neuts (auto) 9.9 H, Absolute Lymphs (auto) 0.59 L, Nucleated RBC % 0, Differential Comment SCANNED 12/17/21 05:55: Sodium 137, Potassium 3.6, Chloride 105, Carbon Dioxide 27.0, Anion Gap 5, BUN 38 H, Creatinine 0.44 L, Estim Creat Clear Calc 32.77, Est GFR (MDRD) Af Amer 179, Est GFR (MDRD) Non-Af 148, BUN/Creatinine Ratio 87.2 H, Glucose 152 H, Calcium 7.8 L Micro: Microbiology 12/14/21 17:45 Blood Culture (Wb) - No Site/Description Given Bacteria Detection (PCR) - Final Staphylococcus epidermidis 12/14/21 17:45 Blood Culture (Wb) - No Site/Description Given Blood Culture - Preliminary Staphylococcus epidermidis 12/14/21 18:00 Blood Culture (Wb) - Right Forearm Blood Culture - Preliminary No growth in 48 hours. 12/14/21 18:40 Urine Catheter - Catheter Urine Culture - Preliminary Alpha Hemolytic Streptococcus 12/15/21 18:25 Urine Catheter - [place] Legionella Antigen - Final 12/15/21 18:25 Urine Catheter - [place] Streptococcus pneumoniae Antigen (M - Final Physical Exam Const alert and oriented x3 Orientation / Consciousness: lethargic HEENT head/scalp atraumatic Head and Scalp: normocephalic Eyes PERRL and conjunctivae normal Neck no lymphadenopathy, supple and no JVD Resp normal respiratory effort, no retractions and no use of accessory muscles Cardio regular rate, regular rhythm and no JVD GI normal to inspection, nondistended, normoactive bowel sounds Extremity normal to inspection, full ROM and no clubbing, cyanosis or edema Skin no rashes or lesions noted, no wounds and skin turgor normal Neuro CN's II-XII intact bilaterally Assessment & Plan Assessment/Plan (1) Lactic acidosis: (2) Severe malnutrition: (3) Sepsis: (4) Pneumonia: QUALIFIERS: Laterality: right Lung location: lower lobe of lung Pneumonia type: due to unspecified organism Qualified Code(s): J18.9 - Pneumonia, unspecified organism PLAN: Day 3 Discharge planning: To be determined. Patient is hospice appropriate, but family is not ready for patient to be moved to hospice at this time. Palliative care to follow with family on 12/18. 1) Encephalopathy Midly improved from yesterday, patient is more reactive to quetions when asked but is still very lethargic and somnolent. Likely metabolic encephalopathy related to underlying UTI and/or questionanble pneumonia. CT of the head did not show any acute intracranial abnormality. Plan is as below, will avoid any sedating medications. 2) UTI Urine culture grew alphahemolytic strep. Broad-spectrum vancomycin initiated, awaiting sensitivities. 3) Leukocytosis Still mildly elevated at 11.5, up from yesterday. Chest x-ray on admission did demonstrate right lower lobe infiltrate with right-sided pleural effusion. There was a concern for pneumonia, CAP versus aspiration, however patient's respiratory status has remained stable and she is now on 93% on room air. Believe patient's elevated white count related to #2, Plan as above. 4) Chronic macrocytic anemia Hemoglobin is stable at 8.4, baseline appears between 9 and 10. No evidence of bleed or hemodynamic instability. We will continue to trend, transfuse if hemoglobin falls below 7. 4) Metastatic esophageal CA, s/p esophageal stent Follows with Dr. Silverio and Dr. Martínez as an outpateint. Speech therapy consult ordered, will continue tube feeds. 5) Hypokalemia Resolved, potassium currently 3.6. 6) Recent fall with pelvic fracture and hematoma Patient was treated at [facility] on 12/02/2021 and was discharged to the [facility] transitional care unit. PT/OT ordered, as needed Tylenol ordered. 7) Malnutrition in the setting of metastic esophageal CA Patient's BMI is 20.5, nutrition consult ordered. 8) HTN/HLD Continue statin and carvedilol. DVT prophylaxis - Heparin Patient seen by Juan Tang PA-C, under the supervision of Dr. Ryan. Time spent on patient care: 8 minutes. Documented by User: Dr. Dean Ryan, DO 12/17/21 11:32 Subjective Subjective Does not feel well. Nausea. Objective Data Lab / Micro Data Result Diagrams: 12/17/21 05:55 12/17/21 05:55 Physical Exam Const alert and no apparent distress Resp normal respiratory effort, no retractions, no use of accessory muscles and clear to auscultation bilaterally Cardio regular rate, regular rhythm, S1 normal heart sound and S2 normal heart sound GI normal to inspection, nondistended, normoactive bowel sounds, soft to palpation, non-tender and non-distended Extremity normal to inspection Assessment & Plan Assessment/Plan (1) Confusion: PLAN: Patient seen and examined independently. Data and vitals reviewed. I agree with the above note by the physician travel assistant. 1. Encephalopathy improved likely metabolic Head CT imaging showed no acute process. Plan: Avoid potentiating medications 2. UTI Alphahemolytic strep Continue with vancomycin for now qSOFA score of 1 therefore sepsis and severe sepsis ruled out. Bacteremia likely contaminant as only 1 of 2 were positive for staph epidermidis 3. Esophageal cancer Status post esophageal stent and PEG tube Patient states that she was not tolerating chemotherapy and was subsequent discontinued. Discussed with Dr. Martínez, chemotherapy discontinued as patient was not tolerating that. Discussed with patient that is unclear her overall progress but informed her t hat I am concerned as she is history of esophageal cancer with stent and PEG tube and not undergoing chemotherapy due to her intolerance of the treatment. Told her her life expectancy may not be very long in light of this and I would recommend considering hospice services at some point. Encourage her to talk amongst her family. 4. Debility: Plan is for [facility] on the . Greater than 20 minutes of which greater 50% than for present time was discussed with the patient at bedside and evaluating patient. Charges/Coding Visit Charges Inpatient E&M: 14128 Subs Hosp L2
[2021-12-17] MEDS: 0.9% Saline Lock 10 ML Syringe IV (14:42)
[2021-12-17] MEDS: Vancomycin IV 1,000 MG/200 ML BAG 200 MG IV (14:42)
[2021-12-17] MEDS: Jevity 1.5 1,000 ML 45 ML GT (18:01)
[2021-12-18 02:52] VITALS: PULSE 99
[2021-12-18 03:00] VITALS: BP 133/84; PULSE 97; RESP 17; TEMP 36.4; O2SAT 97
[2021-12-18 05:06] LABS: Absolute Lymphocyte Count 0.63 X10^3/uL (0.83-4.51); Absolute Neutrophil Count 11.5 X10^3/uL (2.0-7.7); Basophil# 0.01 X10^3/uL; Basophil% 0.1 % (0-1); Eosinophil# 0.04 X10^3/uL; Eosinophils% 0.3 % (0-5); Hematocrit 27.2 % (37-47); Hemoglobin 8.8 g/dL (12.0-15.0); Lymphocyte # 0.63 X10^3/ul (0.83-4.51); Lymphocyte % 4.8 % (19-41); Mean Corp Hgb Conc 32.4 g/dL (32-36); Mean Corpuscular Hgb 34.8 pg (27.0-32.0); Mean Corpuscular Volume 107.5 fL (81-99); Mean Platelet Vol. 10.3 fl (6.2-12.0); Monocyte# 0.82 X10^3/uL; Monocyte% 6.2 % (0-10); NRBC Flagged by Analyzer 0 % (0-5); Neutrophil # 11.53 X10^3/uL (2.7-7.7); Neutrophil % 87.8 % (47-70); Platelet Count 311 K/mm3 (150-450); RBC Distribution Width CV 16.2 % (11.6-14.6); RBC Distribution Width SD 63.2 fl (35.1-43.9); Red Blood Count 2.53 M/mm3 (4.2-5.4); White Blood Count 13.1 K/mm3 (4.4-11.0)
[2021-12-18 05:51] LABS: Anion Gap 4 (5-15); BUN 28 mg/dL (7-18); BUN/Creat Ratio 84.3 RATIO (10-20); Calcium,Total 7.7 mg/dL (8.5-10.1); Chloride 104 mmol/L (98-107); Creatinine, Serum 0.33 mg/dL (0.55-1.02); EST Glomerular Filtration Rate 203 mL/min (>60); Est Glom Filt Rate - Afr Amer 245 mL/min (>60); Estimated Creatinine Clearance 32.77 ml/min; Glucose 134 mg/dL (74-106); Potassium 3.6 mmol/L (3.5-5.1); Sodium Level 137 mmol/L (136-145)
[2021-12-18] MEDS: Heparin Injection (Vial) 5,000 UNIT/ML VIAL 5000 UNIT SC (06:47)
[2021-12-18 06:56] VITALS: PULSE 96
--- NOTE | 2021-12-18 07:50 | PN.HOSP_ITS ---
Objective Data Objective Data Vital Signs: Vital Signs Temp Pulse Resp BP Pulse Ox 97.5 F L 96 17 133/84 H 97 12/18/21 03:00 12/18/21 06:56 12/18/21 03:00 12/18/21 03:00 12/18/21 03:00 Oxygen Delivery Method Room Air Weight: 117 lb 15.157 oz Body Mass Index (BMI) 20.5 Intake & Output: Intake and Output for Last 24 Hours 12/16/21 12/17/21 12/18/21 23:59 23:59 23:59 Intake Total 4267 / 4267 2751 / 2751 Output Total 900 / 1200 1200 / 1375 175 / 175 Balance 3367 / 3067 1551 / 1376 -175 / -175 Lab / Micro Data Result Diagrams: 12/18/21 04:33 12/18/21 04:33 Labs: Laboratory Results - last 24 hr 12/17/21 05:55: Differential Comment SCANNED 12/18/21 04:33: WBC 13.1 H, RBC 2.53 L, Hgb 8.8 L, Hct 27.2 L, MCV 107.5 H D, MCH 34.8 H, MCHC 32.4 D, RDW Std Deviation 63.2 H, RDW Coeff of Vin 16.2 H, Plt Count 311, MPV 10.3, Immature Gran % (Auto) 0.800, Neut % (Auto) 87.8 H, Lymph % (Auto) 4.8 L, [place] % (Auto) 6.2, Eos % (Auto) 0.3, Baso % (Auto) 0.1, Absolute Neuts (auto) 11.5 H, Absolute Lymphs (auto) 0.63 L, Nucleated RBC % 0 12/18/21 04:33: Sodium 137, Potassium 3.6, Chloride 104, Carbon Dioxide 29.0, Anion Gap 4 L, BUN 28 H, Creatinine 0.33 L, Estim Creat Clear Calc 32.77, Est GFR (MDRD) Af Amer 245, Est GFR (MDRD) Non-Af 203, BUN/Creatinine Ratio 84.3 H, Glucose 134 H, Calcium 7.7 L Micro: Microbiology 12/14/21 18:40 Urine Catheter - Catheter Urine Culture - Final Streptococcus viridans group 12/14/21 17:45 Blood Culture (Wb) - No Site/Description Given Bacteria Detection (PCR) - Final Staphylococcus epidermidis 12/14/21 17:45 Blood Culture (Wb) - No Site/Description Given Blood Culture - Preliminary Staphylococcus epidermidis 12/14/21 18:00 Blood Culture (Wb) - Right Forearm Blood Culture - Preliminary No growth in 48 hours. 12/15/21 18:25 Urine Catheter - Dueñas Legionella Antigen - Final 12/15/21 18:25 Urine Catheter - Dueñas Streptococcus pneumoniae Antigen (M - Final Assessment & Plan Assessment/Plan (1) Confusion: PLAN: Patient seen and examined independently. Data and vitals reviewed. I agree with the above note by the physician commercial lending assistant. 1. Encephalopathy improved likely metabolic Head CT imaging showed no acute process. Plan: Avoid potentiating medications 2. UTI Alphahemolytic strep Continue with vancomycin for now qSOFA score of 1 therefore sepsis and severe sepsis ruled out. Bacteremia likely contaminant as only 1 of 2 were positive for staph epidermidis 3. Esophageal cancer Status post esophageal stent and PEG tube Patient states that she was not tolerating chemotherapy and was subsequent discontinued. Discussed with Dr. Martínez, chemotherapy discontinued as patient was not tolerating that. Discussed with patient that is unclear her overall progress but informed her that I am concerned as she is history of esophageal cancer with stent and PEG tube and not undergoing chemotherapy due to her intolerance of the treatment. Told her her life expectancy may not be very long in light of this and I would recommend considering hospice services at some point. Encourage her to talk amongst her family. 4. Debility: Plan is for [facility] on the . Greater than 20 minutes of which greater 50% than for present time was discussed with the patient at bedside and evaluating patient.
[2021-12-18] MEDS: Tobram/Dexam 2.5ML OPTH.BTL 1 DRP LEFT EYE (09:48)
[2021-12-18] MEDS: Juven (unflavored) Packet 1 PACKET PO (09:48)
[2021-12-18] MEDS: 0.9% Saline Lock 10 ML Syringe IV (09:48)
[2021-12-18] MEDS: Ondansetron 4 MG/2 ML Vial IV (09:48)
[2021-12-18 09:52] VITALS: BP 122/76; PULSE 78; RESP 14; TEMP 36.6; O2SAT 91
--- NOTE | 2021-12-18 10:28 | CASEMGMT ---
Social Work As per PA and physician, pt and daughter agreeable to hospice. As per physician, pt would qualify for the inpt unit. SW spoke w/pt and daughter Evelyn at the bedside, daughter tearful. Support offered. SW educated both of them to what hospice is, and the options for where hospice can take place--home, SNF, or the inpt unit should pt qualify. SW did make daughter and pt aware that if pt returns to [place], they would need to pay for room and board. Daughter states understanding. She states that pt had mentioned maybe going to [facility], but she needs to discuss this further w/pt. Both agreeable to referral. Daughter asked if pt's son can come in also, SW asked viscose cellar charge hand, she is agreeable to this, SW let daughter know. SW explained will call hospice to have a meeting arranged. SW called [facility], gave the initial information, and someone is to reach out from scheduling to daughter to set up an appointment, and to also let SW know when the meeting will be. SW did let hospice know pt is current w/palliative care, and that as per the physician, pt would qualify for the inpt unit. SW will continue to follow. TOOTIE Russo
--- NOTE | 2021-12-18 11:54 | DCINST_ITS ---
Discharge Instructions Diet Discharge Diet: No restrictions Activity Discharge Activity: Return to Normal Activity Weight Bearing Status: Weight bearing as tolerated Dressing / Incision Call your doctor if you observe: Fever of 101 or Higher, Numbness or Tingling, Shortness of breath, Dizziness, Chest pain, Increased palpitations (irregular heartbeat) and Calf discomfort Follow Up Care Please Follow Up With: Primary care provider When: Within the next two weeks. Test Results: Test results from this visit will be discussed in further detail at your follow-up appointment, if applicable. Discharge Plan Admission Admit Date/Time: 12/14/21 19:35 Primary Reason for Your Visit: Confusion Attending Provider: Best Banda Primary Care Provider: Salomón Mayo Discharge Orders/Prescriptions Prescriptions: New cephalexin 750 mg capsule 750 mg PO BID Qty: 10 RF: 0 Continued calcium carbonate-vitamin D3 [Calcium 600 with Vitamin D3] 600 mg(1,500mg) - 500 unit capsule 1 cap DAILY RF: 0 cholecalciferol (vitamin D3) 10 mcg (400 unit) capsule 20 mcg feeding tube DAILY RF: 0 metoclopramide HCl 5 mg tablet 5 mg feeding tube 4X/DAY RF: 0 famotidine 20 mg tablet 20 mg feeding tube BID RF: 0 citalopram 20 mg tablet 20 mg feeding tube DAILY RF: 0 atorvastatin 20 mg tablet 20 mg feeding tube DAILY RF: 0 prednisolone acetate 1 % Drops,Suspension 1 drp LEFT EYE Q2H PRN PRN (Reason: cornea transplant) RF: 0 tobramycin-dexamethasone [TobraDex] 0.3-0.1 % Drops,Suspension 1 drp LEFT EYE 4X/DAY RF: 0 Ure-Na 15 gram Powder In Packet 2 packet PO DAILY RF: 0 Referrals / Follow Up: Salomón Mayo MD [Primary Care Provider] - Disposition Disposition (needs filled in before D/C Order can be placed): Hospice in Medical Facility
--- NOTE | 2021-12-18 12:06 | CASEMGMT ---
THONG received a call from THONG Watkins. Dr Glaser would like a call from the physician seeing patient. THONG notified LEA Martinez and physician. LEA Martinez called THONG and patient has been approved to go to the inpatient Hospice unit. THONG Watkins notified this SW that Hospice will be here at to meet with family. Mandy Connelly BENEFITS ASSISTANT SUDEEP
[2021-12-18 12:19] VITALS: PULSE 108
--- NOTE | 2021-12-18 13:43 | NURSING ---
report called to inpatient unit hospice Michelle Piper rn
--- NOTE | 2021-12-18 13:51 | CASEMGMT ---
Addendum entered by Mandy Connelly 12/18/21 14:08: THONG arranged for patient to get picked up at 1430 via cot by [facility]. THONG faxed d/c orders and DNR to [facility]. THONG notified RN, medical secretary receptionist, Libia at Hospice, patient and her family regarding bean picker time. THONG called [facility] and spoke with Vitaliy letting him know patient will not be returning as she is going to the inpatient Hospice unit. Plan: [facility] inpatient unit. [facility] transported via cot. Mandy SHEETS Original Note: Franchesca from Hospice spoke with patient and family and papers were signed. Franchesca said their mobile unit is not running after 2p today. THONG will set up transport. Mandy SHEETS
--- NOTE | 2021-12-18 14:00 | DS.PCM_ITS ---
Documented by User: Juan TATE 12/18/21 14:14 Providers Date of Admission: 12/14/21 Date of Discharge: 12/18/21 Primary Care Physician: Salomón Mayo MD Consultations 12/14/21 20:42 Consult: Onc/Wound/rail car maintenance mechanic Routine Comment: Reason For Visit: CONFUSION Diagnosis Discharge Diagnosis (1) Confusion: Status: Acute Code(s): R41.0 - Disorientation, unspecified Medications at Discharge Home Medications calcium carbonate 600 mg-vitamin D3 12.5 mcg (500 unit) capsule 1 cap DAILY cap 12/09/20 cholecalciferol (vitamin D3) 10 mcg (400 unit) capsule 20 mcg FEEDING TUBE DAILY cap 12/09/20 famotidine 20 mg tablet 20 mg FEEDING TUBE BID tab 12/09/20 metoclopramide HCl 5 mg tablet 5 mg FEEDING TUBE 4X/DAY tab 12/09/20 citalopram 20 mg FEEDING TUBE DAILY 12/02/21 atorvastatin 20 mg FEEDING TUBE DAILY 12/14/21 Ure-Na 2 packet PO DAILY 12/15/21 prednisolone acetate 1 drp LEFT EYE Q2H PRN PRN 12/15/21 tobramycin-dexamethasone [TobraDex] 1 drp LEFT EYE 4X/DAY 12/15/21 cephalexin 750 mg PO BID #10 cap 12/18/21 Hospital Course Summary of Care Provided Minutes Spent on Discharge: 20 Hospital Course: Patient is a 81-year-old female who was admitted to [facility] on 12/14/2021 for evaluation and management of confusion. Course and management as below. 1) Encephalopathy Patients mentation has been stagnant throughout admission. No notable changes observed. It is unlikely that this will change with ongoing care. Likely metabolic encephalopathy related to underlying UTI and/or questionanble pneumonia. CT of the head did not show any acute intracranial abnormality. Discussed case with family and expressed concerns that patients overall prognosis is not great and felt that she would be appropriate for hospice, family in agreement and would like patient discharged to inpatient hospice unit. 2) UTI Urine culture grew alphahemolytic strep. Cephalexin continued on discharge for another 5 days based off of sensitivities. 3) Leukocytosis Still elevated at 13.1. Chest x-ray on admission did demonstrate right lower lobe infiltrate with right-sided pleural effusion. There was a concern for pneumonia, CAP versus aspiration, however patient's respiratory status has remained stable and she is now on 93% on room air. Believe patient's elevated white count related to #2, Plan as above. 4) Chronic macrocytic anemia Hemoglobin is stable at 8.8, baseline appears between 9 and 10. No evidence of bleed or hemodynamic instability. We will continue to trend, transfuse if hemoglobin falls below 7. 4) Metastatic esophageal CA, s/p esophageal stent Follows with Dr. Silverio and Dr. Martínez as an outpateint. Speech therapy consult ordered, will continue tube feeds. 5) Hypokalemia Resolved, potassium currently 3.6. 6) Recent fall with pelvic fracture and hematoma Patient was treated at [facility] on 12/02/2021 and was discharged to the [facility] transitional care unit. PT/OT ordered, as needed Tylenol ordered. 7) Malnutrition in the setting of metastic esophageal CA Patient's BMI is 20.5, nutrition consult ordered. 8) HTN/HLD Continue statin and carvedilol. Patient seen by Juan Tang PA-C, under the supervision of Dr. Banda. Time spent on patient care: 20 minutes. Physical Exam Narrative Patient is a 81-year-old female, alert and orient x3. Although patient is appropriately alert and oriented she is lethargic and somnolent and slow to respond to questions. Patient also has an episode of vomiting on exam. Does not appear to be improving in regards to her mental status. Const alert, oriented x3 and no apparent distress HEENT normocephalic, head/scalp atraumatic and hearing grossly normal bilaterally Eyes PERRL, EOMs intact bilaterally and conjunctivae normal Neck no lymphadenopathy, supple and no JVD Resp normal respiratory effort, no retractions and no use of accessory muscles Cardio regular rhythm Rate: tachycardic GI normal to inspection, nondistended, normoactive bowel sounds Extremity normal to inspection, full ROM and no clubbing, cyanosis or edema Skin no rashes or lesions noted Neuro CN's II-XII intact bilaterally Psych affect normal Weight / BMI Weight Weight: 117 lb 15.157 oz Body Mass Index (BMI) 20.5 ABG / Lab / Microbiology Data Result Diagrams: 12/18/21 04:33 12/18/21 04:33 Laboratory: Laboratory Results - last 24 hr 12/18/21 04:33: WBC 13.1 H, RBC 2.53 L, Hgb 8.8 L, Hct 27.2 L, MCV 107.5 H D, MCH 34.8 H, MCHC 32.4 D, RDW Std Deviation 63.2 H, RDW Coeff of Vin 16.2 H, Plt Count 311, MPV 10.3, Immature Gran % (Auto) 0.800, Neut % (Auto) 87.8 H, Lymph % (Auto) 4.8 L, [place] % (Auto) 6.2, Eos % (Auto) 0.3, Baso % (Auto) 0.1, Absolute Neuts (auto) 11.5 H, Absolute Lymphs (auto) 0.63 L, Nucleated RBC % 0 12/18/21 04:33: Sodium 137, Potassium 3.6, Chloride 104, Carbon Dioxide 29.0, An ion Gap 4 L, BUN 28 H, Creatinine 0.33 L, Estim Creat Clear Calc 32.77, Est GFR (MDRD) Af Amer 245, Est GFR (MDRD) Non-Af 203, BUN/Creatinine Ratio 84.3 H, Glucose 134 H, Calcium 7.7 L Microbiology: Microbiology 12/14/21 18:00 Blood Culture (Wb) - Right Forearm Blood Culture - Preliminary No growth in 48 hours. 12/14/21 18:40 Urine Catheter - Catheter Urine Culture - Final Streptococcus viridans group 12/14/21 17:45 Blood Culture (Wb) - No Site/Description Given Bacteria Detection (PCR) - Final Staphylococcus epidermidis 12/14/21 17:45 Blood Culture (Wb) - No Site/Description Given Blood Culture - Preliminary Staphylococcus epidermidis 12/15/21 18:25 Urine Catheter - Dueñas Legionella Antigen - Final 12/15/21 18:25 Urine Catheter - Dueñas Streptococcus pneumoniae Antigen (M - Final D/C Instructions Discharge Diet: No restrictions Weight Bearing Status: Weight bearing as tolerated Call your doctor if you observe: Fever of 101 or Higher, Numbness or Tingling, Shortness of breath, Dizziness, Chest pain, Increased palpitations (irregular heartbeat) and Calf discomfort Please Follow Up With: Primary care provider When: Within the next two weeks. Meaningful Use Info Meaningful Use Diagnoses (Choose all that apply): None applicable Discharge Plan Admission Admit Date/Time: 12/14/21 19:35 Primary Reason for Your Visit: Confusion Attending Provider: Best Banda Primary Care Provider: Salomón Mayo Discharge Orders/Prescriptions Prescriptions: New cephalexin 750 mg capsule 750 mg PO BID Qty: 10 RF: 0 Continued calcium carbonate-vitamin D3 [Calcium 600 with Vitamin D3] 600 mg(1,500mg) - 500 unit capsule 1 cap DAILY RF: 0 cholecalciferol (vitamin D3) 10 mcg (400 unit) capsule 20 mcg feeding tube DAILY RF: 0 metoclopramide HCl 5 mg tablet 5 mg feeding tube 4X/DAY RF: 0 famotidine 20 mg tablet 20 mg feeding tube BID RF: 0 citalopram 20 mg tablet 20 mg feeding tube DAILY RF: 0 atorvastatin 20 mg tablet 20 mg feeding tube DAILY RF: 0 prednisolone acetate 1 % Drops,Suspension 1 drp LEFT EYE Q2H PRN PRN (Reason: cornea transplant) RF: 0 tobramycin-dexamethasone [TobraDex] 0.3-0.1 % Drops,Suspension 1 drp LEFT EYE 4X/DAY RF: 0 Ure-Na 15 gram Powder In Packet 2 packet PO DAILY RF: 0 Referrals / Follow Up: Salomón Mayo MD [Primary Care Provider] - Disposition Disposition (needs filled in before D/C Order can be placed): Hospice in Medical Facility Documented by User: Dr. Best Banda MD 12/18/21 17:25 Providers Date of Admission: 12/14/21 Reason For Visit: CONFUSION Medications at Discharge Home Medications calcium carbonate 600 mg-vitamin D3 12.5 mcg (500 unit) capsule 1 cap DAILY cap 12/09/20 cholecalciferol (vitamin D3) 10 mcg (400 unit) capsule 20 mcg FEEDING TUBE DAILY cap 12/09/20 famotidine 20 mg tablet 20 mg FEEDING TUBE BID tab 12/09/20 metoclopramide HCl 5 mg tablet 5 mg FEEDING TUBE 4X/DAY tab 12/09/20 citalopram 20 mg FEEDING TUBE DAILY 12/02/21 atorvastatin 20 mg FEEDING TUBE DAILY 12/14/21 Ure-Na 2 packet PO DAILY 12/15/21 prednisolone acetate 1 drp LEFT EYE Q2H PRN PRN 12/15/21 tobramycin-dexamethasone [TobraDex] 1 drp LEFT EYE 4X/DAY 12/15/21 cephalexin 750 mg PO BID #10 cap 12/18/21 Hospital Course Summary of Care Provided Hospital Course: This patient was seen in conjunction with LEA Adams. I have independently interviewed and examined the patient and reviewed pertinent history, examination findings, laboratory and plan of management. I have reviewed the note and agree with the documented findings with the few additional points. In brief, patient is 81-year-old female with multiple comorbidities, poor nutritional status, debilitation, metastatic esophageal cancer was admitted from [facility] for abnormal lab result. Patient lab work shows leukocytosis 15.8 thousand, hypotension oncology office for concern of sepsis. 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 Chest x-ray shows right pleural effusion with right lower lobe infiltrate. Detail hospital evaluation and management as follows 1. Encephalopathy most likely metabolic. Improved on baseline. Head CT imaging showed no acute process. This was discussed with patient's daughter POA near the bedside. 2. UTI possible right lung base aspiration pneumonia present on admission Urine culture showed alphahemolytic strep. Patient is started on broad-spectrum antibiotic vancomycin, qSOFA score of 1 therefore sepsis and severe sepsis ruled out. Bacteremia likely contaminant as only 1 of 2 were positive for staph epidermidis. Tube feed on hold. Since patient vomited there is high risk for aspiration with chest x-ray finding possible aspiration pneumonia therefore patient discharged on Flagyl and Keflex. 3. Esophageal cancer Status post esophageal stent and PEG tube Patient states that she was not tolerating chemotherapy and was subsequent discontinued. Plan of management discussed with Dr. Martínez, chemotherapy discontinued as patient was not tolerating that. LEA Martinez and I discussed with patient's POA her daughter near the bedside that her overall prognosis is poor in view of metastatic esophageal cancer, encephalopathy with dementia, debility, risk of aspiration on tube feed therefore palliative care/hospice care is appropriate. She has septated and agreed for hospice care. Hospice consult was done. Hospital course was discussed with the in home sales consultant Dr. Pritchard. Patient transferred to inpatient hospice care. 4. Debility: Discharge medication reconciliation done. Discharge follow-up instructions completed. Discharge process discussed with the patient and all questions were answered to patient's satisfaction. Patient discharged to inpatient hospice care. Total time spent, 40 minutes on discharge meds reconciliation, examination, coordination of care with nurses and ancillary staff, review of imaging and blood test and discussion with the patient on follow-up instructions. I spent 25 minutes, more than half time and PA spent 15 minutes I have discussed my assessment with LEA Adams and orders have been reviewed. Physical Exam Narrative Seen and examined. Patient has advanced comorbidities and poor functional status. She has low muscle mass, poor understanding and comprehension. She is debilitated. She also vomited mainly tube feed content. To follow on hold. Physical exam General: Confused, disoriented to time and place. Limited comprehension. HEENT: Atraumatic, PERRLA, EOMI, Normocephalic Oral: No Gingival or Mucosal Lesions/ Ulcerations Neck: Supple, No JVD, Negative Carotid Bruits Lungs: Air entry diminished in bilateral lung bases. No crepitation/rhonchi Cardiovascular: Regular rate, Regular Rhythm, Normal S1, Normal S2, No murmurs Abdomen: PEG tube. Tube is patent on exam. Flushed with saline. Bowel Sounds Present, Soft, Non Tender, Non-Distended : No renal angle tenderness. No suprapubic tenderness. Extremities: Mild dependent edema of hand and ankles, pitting. , Capillary Refill Less than 3 Seconds Skin: Ulcer over coccyx and upper back, stage II, superficial decubitus in nature, present on admission. Dressing done. Arlene wound nurse photo and note reviewed Musculoskeletal: No Tenderness to Palpation of Joints or Extremities Neurological: Cranial nerves II-XII grossly intact, DTR 2+/4 weakness of knee and hip joints, power 4/5. Psych/Mental Status: Flat affect, dementia ABG / Lab / Microbiology Data Result Diagrams: 12/18/21 04:33 12/18/21 04:33 Discharge Plan Admission Admit Date/Time: 12/14/21 19:35 Primary Reason for Your Visit: Confusion Attending Provider: Best Banda Primary Care Provider: Salomón Mayo Discharge Orders/Prescriptions Prescriptions: New cephalexin 750 mg capsule 750 mg PO BID Qty: 10 RF: 0 Continued calcium carbonate-vitamin D3 [Calcium 600 with Vitamin D3] 600 mg(1,500mg) - 500 unit capsule 1 cap DAILY RF: 0 cholecalciferol (vitamin D3) 10 mcg (400 unit) capsule 20 mcg feeding tube DAILY RF: 0 metoclopramide HCl 5 mg tablet 5 mg feeding tube 4X/DAY RF: 0 famotidine 20 mg tablet 20 mg feeding tube BID RF: 0 citalopram 20 mg tablet 20 mg feeding tube DAILY RF: 0 atorvastatin 20 mg tablet 20 mg feeding tube DAILY RF: 0 prednisolone acetate 1 % Drops,Suspension 1 drp LEFT EYE Q2H PRN PRN (Reason: cornea transplant) RF: 0 tobramycin-dexamethasone [TobraDex] 0.3-0.1 % Drops,Suspension 1 drp LEFT EYE 4X/DAY RF: 0 Ure-Na 15 gram Powder In Packet 2 packet PO DAILY RF: 0 Referrals / Follow Up: Salomón Mayo MD [Primary Care Provider] - Disposition Disposition (needs filled in before D/C Order can be placed): Hospice in Medical Facility Charges/Coding Visit Charges Inpatient E&M: 80475 Disch Hosp
[2021-12-18 14:16] LABS: Vancomycin, Trough Level 7.6 ug/mL (5.0-15.0)
--- NOTE | 2021-12-18 15:14 | PCM.RX.CS ---
Consult Type of Consult: Follow-up Suspected Infection: Sepsis Labs: Sodium 137 mmol/L (136-145) 12/18/21 04:33 Potassium 3.6 mmol/L (3.5-5.1) 12/18/21 04:33 Chloride 104 mmol/L (98-107) 12/18/21 04:33 Carbon Dioxide 29.0 mmol/L (21.0-32.0) 12/18/21 04:33 Anion Gap 4 (5-15) L 12/18/21 04:33 BUN 28 mg/dL (7-18) H 12/18/21 04:33 Creatinine 0.33 mg/dL (0.55-1.02) L 12/18/21 04:33 Est GFR (MDRD) Af Amer 245 mL/min (>60) 12/18/21 04:33 Est GFR (MDRD) Non-Af 203 mL/min (>60) 12/18/21 04:33 BUN/Creatinine Ratio 84.3 RATIO (10-20) H 12/18/21 04:33 Glucose 134 mg/dL (74-106) H 12/18/21 04:33 Vancomycin Trough 7.6 ug/mL (5.0-15.0) 12/18/21 13:20 Microbiology: Microbiology 12/14/21 18:00 Blood Culture (Wb) - Right Forearm Blood Culture - Preliminary No growth in 48 hours. 12/14/21 18:40 Urine Catheter - Catheter Urine Culture - Final Streptococcus viridans group 12/14/21 17:45 Blood Culture (Wb) - No Site/Description Given Bacteria Detection (PCR) - Final Staphylococcus epidermidis 12/14/21 17:45 Blood Culture (Wb) - No Site/Description Given Blood Culture - Preliminary Staphylococcus epidermidis 12/15/21 18:25 Urine Catheter - Dueñas Legionella Antigen - Final 12/15/21 18:25 Urine Catheter - Dueñas Streptococcus pneumoniae Antigen (M - Final Goal Trough: 15-20 mcg/mL Pharmacy Plan for Drug Dosing: VANCOMYCIN LEVEL RECEIVED Current Vancomycin Dose: 1000mg Q24H Number of Doses Received: 2 Vancomycin Level: 7.6 Hours Since Last Dose: 23 hours Renal Function: sCr 0.33 Renal Function Trend: stable Vancomycin Plan/Comments: Increase Vancomycin dosing to 750mg Q12H, to start at 1530 12/18/21 Pending Level: Vancomycin trough @ 0300 2/23/22 Pharmacy Service will continue to monitor and adjust dosing as required. Labs to be done on [date and time ordered]: Vancomycin trough @ 0300 12/20/21
--- NOTE | 2021-12-18 15:23 | NURSING ---
patient left via squad- family present wc was left family states it is [facility] wc called spoke with freddy to arrange pickler helper for wc wc taken to main enterence labeled for pickler helper
== END 2021-12-18 15:20 | disposition hospice, inpatient (51) | DRG 698 ==
LOC: ED 19:43 → PCU 20:01
PROVIDERS: Physician Assistant; Admitting Provider Internal Medicine; Emergency Provider Emergency Medicine; PCP Family Medicine; Visit Provider Internal Medicine
DX: T83.511A Infection and inflammatory reaction due to indwelling urethral catheter, initial encounter (principal); G93.41 Metabolic encephalopathy; J69.0 Pneumonitis due to inhalation of food and vomit; L89.153 Pressure ulcer of sacral region, stage 3; E43 Unspecified severe protein-calorie malnutrition; C15.9 Malignant neoplasm of esophagus, unspecified; E87.2 Acidosis; J90 Pleural effusion, not elsewhere classified; F03.90 Unspecified dementia, unspecified severity, without behavioral disturbance, psychotic disturbance, mood disturbance, and anxiety; Z93.1 Gastrostomy status; L89.101 Pressure ulcer of unspecified part of back, stage 1; B96.89 Other specified bacterial agents as the cause of diseases classified elsewhere; B95.5 Unspecified streptococcus as the cause of diseases classified elsewhere; I95.9 Hypotension, unspecified; N39.0 Urinary tract infection, site not specified; D53.9 Nutritional anemia, unspecified; E78.5 Hyperlipidemia, unspecified; I10 Essential (primary) hypertension; F41.9 Anxiety disorder, unspecified; E87.6 Hypokalemia; M41.9 Scoliosis, unspecified; W19.XXXD Unspecified fall, subsequent encounter; I25.2 Old myocardial infarction; Z66 Do not resuscitate; F32.A Depression, unspecified; Z79.899 Other long term (current) drug therapy; R53.81 Other malaise; S32.9XXD Fracture of unspecified parts of lumbosacral spine and pelvis, subsequent encounter for fracture with routine healing; Z68.20 Body mass index [BMI] 20.0-20.9, adult; Z51.5 Encounter for palliative care; R13.12 Dysphagia, oropharyngeal phase
CPT/HCPCS: 36415; 51702; 71045; 74230; 80048; 80053; 80202; 81001; 83605; 85025; 85610; 85730; 87040; 87077; 87086; 87088; 87149; 87186; 87449; 92526; 92610; 92611; 93005; 97110; 97163; 97166; 97530; 97535; 97802; 99285; J7030; J7050; A4216; J2405